=== PATIENT | female | born 1945 | race Caucasian/White ===

== ENCOUNTER 2022-01-01 13:53 | Inpatient (IN) | payer MEDICARE ==
[~2022-01-01] VITALS: Ht 167.6 cm; Wt 108.4 kg
[~2022-01-01 13:53] MED LIST: ACET-1871 PO; ASPI-630 PO; ATORVASTATIN CA80 MG PO; CITA20TA6 PO; GABA300C18 PO; HYDR12.58 PO; LEVO25TA4 PO; LISI5TAB15 PO; OMEP20CA16 PO; [UNRECOGNIZED DRUG - CODE] PO; [UNRECOGNIZED DRUG - OTHER]
[2022-01-01] MEDS ORDERED: NITROGLYCERIN SUBLINGUAL 0.4 MG BOTTLE OF 25. SL PRN ×2 (14:15→17:45)
[2022-01-01] MEDS ORDERED: MORPHINE SULFATE 4 MG/ML INJ. IV/SQ PRN (14:15)
--- NOTE | 2022-01-01 14:21 | RAD ---
XR CHEST 1V History: Chest pain Comparison: None. Technique: Portable AP radiograph of the chest. Findings: The lungs are hypoinflated. There are bibasilar opacities and diffuse interstitial opacities. The pul monary vasculature is indistinct. Suspect small pleural effusions. No pneumothorax. Cardiac silhouett e is at the upper limits of normal for size. Soft tissues and osseous structures are unremarkable. Impression: 1. Diffuse interstitial opacities and small pleural effusions may represent interstitial edema in th e appropriate clinical setting. Superimposed atelectasis or infection is not excluded. Electronically signed by: Amish Johnson MD (01/01/2022 2:19 PM) [id number]
[2022-01-01 14:35] LABS: BASO % 0 % (0-3); EOS # 0.1 x10^3/uL (0.0-0.7); EOS % 2 % (0-3); HEMATOCRIT 32.9 % (36.0-47.0); HEMOGLOBIN 10.5 g/dL (12.0-15.5); LYMPH # 1.2 x10^3/uL (1.0-4.8); LYMPH % 18 % (24-48); MEAN CORPUSCULAR HEMOGLOBIN 29 pg (25-35); MEAN CORPUSCULAR HGB CONC 32 g/dL (31-37); MEAN CORPUSCULAR VOLUME 91 fL (79-100); MONO # 0.5 x10^3/uL (0.0-1.1); MONO % 7 % (0-9); NEUT # 4.7 x10^3/uL (1.8-7.7); NEUT % 72 % (31-73); PLATELET COUNT 309 x10^3/uL (140-400); RED BLOOD COUNT 3.63 x10^6/uL (3.50-5.40); RED CELL DISTRIBUTION WIDTH 17.7 % (11.5-14.5); WHITE BLOOD COUNT 6.5 x10^3/uL (4.0-11.0)
[2022-01-01 14:46] LABS: CALCIUM 8.3 mg/dL (8.5-10.1); CREATININE 2.1 mg/dL (0.6-1.0); GFR 22.8; POTASSIUM 4.4 mmol/L (3.5-5.1)
[2022-01-01 14:49] LABS: ALBUMIN 2.9 g/dL (3.4-5.0); ALBUMIN/GLOBULIN RATIO 0.8 (1.0-1.7); MAGNESIUM 2.2 mg/dL (1.8-2.4); TOTAL BILIRUBIN 1.1 mg/dL (0.2-1.0); TOTAL PROTEIN 6.5 g/dL (6.4-8.2)
--- NOTE | 2022-01-01 16:08 | EKG ---
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
--- NOTE | 2022-01-01 16:09 | PDOC1 ---
History and Physical Date of Admission Date of Admission DATE: 01/01/22 TIME: 16:01 Identification/Chief Complaint Chief Complaint Chest pain Source Source: Patient History of Present Illness History of Present Illness Ms Remy is a 76yo female with PMHx HTN, hypothyroidism, ?COPD, RLS/essential tremor, CKDIV and recent diagnosis of afib who comes to ED via EMS c/o left sided chest pain that radiates to her left arm Pain is sharp, intermittent and radiates to left arm and shoulder. Pain has associated mild shortness of breath. She also notes some progressive dyspnea on exertion and some weakness that has gotten so bad that she could not catch her breath at all today had a proper self up. Pain is been present for least 1 week and has been mild but progressive now. No recent sick contacts. She does note she was hospitalized about a month ago at [facility] and was treated for which she was told was a viral respiratory tract infection. She notes she was also diagnosed with carotid artery disease and has an outpatient follow-up with surgery for this she noted some left-sided weakness at that time but does not really note that currently. No right-sided weakness. She does note she has had a 2 pound weight gain and normally weighs [address] Rosenberg for nephrology and think she has CKD stage IV. She follows with cardiology at [facility]. She takes Eliquis 5 mg twice daily gabapentin 300 mg daily and atorvastatin 80 mg nightly levothyroxine 137 mcg daily allopurinol 100 mg daily amiodarone 200 mg daily furosemide 40 mg daily Remeron 15 mg nightly WBC 6.5, Hb 10.5, platelets 309, NA 145, K4.4, BUN 29, CR 2.1, glucose 111, calcium 8.3, magnesium 2.2, bilirubin 1.1, AST 29, ALT 34, alkaline phosphatase 102, high-sensitivity troponin is 13, NT proBNP 1613, albumin 2.9, TSH 3.016 EKG appears sinus rate of 82 bpm, QTC 456 otherwise normal axis and intervals. No ST elevations or T WI Chest radiograph Diffuse interstitial opacities and small pleural effusions She was hypoxic less than 88% on room air placed on 2 L with O2 saturations 94%. Feels little improved. Admitted for further care. Past Medical History Cardiovascular: HTN, Hyperlipidemia Pulmonary: COPD CENTRAL NERVOUS SYSTEM: Periperal neuropathy, Other GI: GERD, Other Heme/Onc: No pertinent hx Hepatobiliary: No pertinent hx Psych: Anxiety Musculoskeletal: Osteoarthritis, Other Rheumatologic: No pertinent hx Infectious disease: No pertinent hx Renal/: Chronic renal insuff, Urinary Incontinence Endocrine: Hypothyroidism Past Surgical History Past Surgical History: Cholecystectomy, Hernia Repair, Hysterectomy Family History Family History: Coronary Artery Disease, Hypertension Social History Smoke: Quit (1997. Smoked for 30 years prior to that) ALCOHOL: none Drugs: None Current Medications Current Medications Current Medications Nitroglycerin (Nitrostat) 0.4 mg PRN Q5MIN PRN SL CP RATING > 1/10 Last administered on 01/01/22at 14:44; Start 01/01/22 at 14:15; Stop 01/02/22 at 14:14 Morphine Sulfate (Morphine Sulfate) 4 mg PRN Q15MIN PRN IV/SQ PAIN GREATER THAN 3/10 Last administered on 01/01/22at 15:14; Start 01/01/22 at 14:15; Stop 01/02/22 at 14:14 Active Scripts Active Reported Gabapentin 300 Mg Capsule 300 Mg PO HS [mag 500, vitamin D 3] Omeprazole 20 Mg Capsule.dr 20 Mg PO DAILY Atorvastatin Calcium 80 Mg Tablet 80 Mg PO DAILY Levothyroxine Sodium 25 Mcg Tablet 25 Mcg PO DAILY Slo-Niacin (Niacin) 500 Mg Tablet.er 500 Mg PO DAILY Lisinopril 5 Mg Tablet 5 Mg PO DAILY Citalopram Hbr (Citalopram Hydrobromide) 20 Mg Tablet 20 Mg PO DAILY Aspirin 81 Mg Tab.chew 81 Mg PO DAILY Acetaminophen 650 Mg Tablet.er 650 Mg PO Allergies Allergies: Coded Allergies: ibuprofen (Unverified Allergy, Intermediate, 03/23/14) ROS General: YES: Fatigue, Malaise; No: Chills, Night Sweats, Appetite, Other PSYCHOLOGICAL ROS: No: Anxiety, Behavioral Disorder, Concentration difficultie, Decreased libido, Depression, Disorientation, Hallucinations, Hostility, Irritablity, Memory difficulties, Mood Swings, Obsessive thoughts, Physical abuse, Sexual abuse, Sleep disturbances, Suicidal ideation, Other Eyes: No Blurry vision, No Decreased vision, No Double vision, No Dry eyes, No Excessive tearing, No Eye Pain, No Itchy Eyes, No Loss of vision, No Photophobia, No Scotomata, No Uses contacts, No Uses glasses, No Other HEENT: No: Heacaches, Visual Changes, Hearing change, Nasal congestion, Nasal discharge, Oral lesions, Sinus pain, Sore Throat, Epistaxis, Sneezing, Snoring, Tinnitus, Vertigo, Vocal changes, Other ALLERGY AND IMMUNOLOGY: No: Hives, Insect Bite Sensitivity, Itchy/Watery Eyes, Nasal Congestion, Post Nasal Drip, Seasonal Allergies, Other Hematological and Lymphatic: No: Bleeding Problems, Blood Clots, Blood Tra nsfusions, Brusing, Night Sweats, Pallor, Swollen Lymph Nodes, Other ENDOCRINE: No: Breast Changes, Galactorrhea, Hair Pattern Changes, Hot Flashes, Malaise/lethargy, Mood Swings, Palpitations, Polydipsia/polyuria, Skin Changes, Temperature Intolerance, Unexpected Weight Changes, Other Breast: No New/Changing Breast Lumps, No Nipple changes, No Nipple discharge, No Other Respiratory: YES: Orthopnea, Pleuritic Pain, Shortness of breath, SOB with excertion, Tachypnea, Wheezing; No: Cough, Hemoptysis, Sputum Changes, Stridor, Other Cardiovascular: yes Chest Pain, yes Orthopnea, yes Edema; No Palpitations, No Paroxysmal Noc. Dyspnea, No Lt Headedness, No Other Gastrointestinal: No Nausea, No Vomiting, No Abdominal Pain, No Diarrhea, No Constipation, No Melena, No Hematochezia, No Other Genitourinary: No Dysuria, No Frequency, No Incontinence, No Hematuria, No Retention, No Discharge, No Urgency, No Pain, No Flank Pain, No Other, No , No , No , No , No , No , No Musculoskeletal: No Gait Disturbance, No Joint Pain, No Joint Stiffness, No Joint Swelling, No Muscle Pain, No Muscular Weakness, No Pain In:, No Swelling In:, No Other Neurological: No Behavorial Changes, No Bowel/Bladder ControlChng, No Confusion, No Dizziness, No Gait Disturbance, No Headaches, No Impaired Coord/balance, No Memory Loss, No Numbness/Tingling, No Seizures, No Speech Problems, No Tremors, No Visual Changes, No Weakness, No Other Skin: No Dry Skin, No Eczema, No Hair Changes, No Lumps, No Mole Changes, No Mottling, No Nail Changes, No Pruritus, No Rash, No Skin Lesion Changes, No Other, No Acne Physical Exam General: Alert, Oriented X3, Cooperative, mild distress HEENT: Atraumatic, PERRLA, EOMI, Mucous membr. moist/pink Lungs: Other (Bilateral crackles) Heart: S1S2, RRR, no thrills, no rubs, no gallops, no murmurs Abdomen: Normal bowel sounds, Soft, No tenderness, No hepatosplenomegaly, No masses Rectal Exam: not examined Extremities: No clubbing, No cyanosis, Normal pulses, Other (1+ edema bilatera lly) Skin: No rashes, No breakdown, No significant lesion Neuro: Normal gait, Normal speech, Strength at 5/5 X4 ext, Normal tone, Sensation intact, Cranial nerves 3-12 NL, Reflexes 2+ Psych/Mental Status: Mental status NL, Mood NL Vitals Vitals Vital Signs Date Time Temp Pulse Resp B/P (MAP) Pulse Ox O2 Delivery O2 Flow Rate FiO2 01/01/22 15:14 26 98 Room Air 2.0 01/01/22 14:44 82 114/65 01/01/22 14:00 98.5 98.5 Labs Labs Laboratory Tests Test 01/01/22 14:15 White Blood Count 6.5 x10^3/uL (4.0-11.0) Red Blood Count 3.63 x10^6/uL (3.50-5.40) Hemoglobin 10.5 g/dL (12.0-15.5) Hematocrit 32.9 % (36.0-47.0) Mean Corpuscular Volume 91 fL (79-100) Mean Corpuscular Hemoglobin 29 pg (25-35) Mean Corpuscular Hemoglobin Concent 32 g/dL (31-37) Red Cell Distribution Width 17.7 % (11.5-14.5) Platelet Count 309 x10^3/uL (140-400) Neutrophils (%) (Auto) 72 % (31-73) Lymphocytes (%) (Auto) 18 % (24-48) Monocytes (%) (Auto) 7 % (0-9) Eosinophils (%) (Auto) 2 % (0-3) Basophils (%) (Auto) 0 % (0-3) Neutrophils # (Auto) 4.7 x10^3/uL (1.8-7.7) Lymphocytes # (Auto) 1.2 x10^3/uL (1.0-4.8) Monocytes # (Auto) 0.5 x10^3/uL (0.0-1.1) Eosinophils # (Auto) 0.1 x10^3/uL (0.0-0.7) Basophils # (Auto) 0.0 x10^3/uL (0.0-0.2) Sodium Level 145 mmol/L (136-145) Potassium Level 4.4 mmol/L (3.5-5.1) Chloride Level 105 mmol/L (98-107) Carbon Dioxide Level 29 mmol/L (21-32) Anion Gap 11 (6-14) Blood Urea Nitrogen 29 mg/dL (7-20) Creatinine 2.1 mg/dL (0.6-1.0) Estimated GFR (Cockcroft-Gault) 22.8 BUN/Creatinine Ratio 14 (6-20) Glucose Level 111 mg/dL (70-99) Calcium Level 8.3 mg/dL (8.5-10.1) Magnesium Level 2.2 mg/dL (1.8-2.4) Total Bilirubin 1.1 mg/dL (0.2-1.0) Aspartate Amino Transf (AST/SGOT) 29 U/L (15-37) Alanine Aminotransferase (ALT/SGPT) 34 U/L (14-59) Alkaline Phosphatase 102 U/L (46-116) Troponin I High Sensitivity 13 ng/L (4-50) VN-Kaq-K-Type Natriuretic Peptide 1613 pg/mL (0-449) Total Protein 6.5 g/dL (6.4-8.2) Albumin 2.9 g/dL (3.4-5.0) Albumin/Globulin Ratio 0.8 (1.0-1.7) Thyroid Stimulating Hormone (TSH) 3.016 uIU/mL (0.358-3.74) Laboratory Tests Test 01/01/22 14:15 White Blood Count 6.5 x10^3/uL (4.0-11.0) Red Blood Count 3.63 x10^6/uL (3.50-5.40) Hemoglobin 10.5 g/dL (12.0-15.5) Hematocrit 32.9 % (36.0-47.0) Mean Corpuscular Volume 91 fL (79-100) Mean Corpuscular Hemoglobin 29 pg (25-35) Mean Corpuscular Hemoglobin Concent 32 g/dL (31-37) Red Cell Distribution Width 17.7 % (11.5-14.5) Platelet Count 309 x10^3/uL (140-400) Neutrophils (%) (Auto) 72 % (31-73) Lymphocytes (%) (Auto) 18 % (24-48) Monocytes (%) (Auto) 7 % (0-9) Eosinophils (%) (Auto) 2 % (0-3) Basophils (%) (Auto) 0 % (0-3) Neutrophils # (Auto) 4.7 x10^3/uL (1.8-7.7) Lymphocytes # (Auto) 1.2 x10^3/uL (1.0-4.8) Monocytes # (Auto) 0.5 x10^3/uL (0.0-1.1) Eosinophils # (Auto) 0.1 x10^3/uL (0.0-0.7) Basophils # (Auto) 0.0 x10^3/uL (0.0-0.2) Sodium Level 145 mmol/L (136-145) Potassium Level 4.4 mmol/L (3.5-5.1) Chloride Level 105 mmol/L (98-107) Carbon Dioxide Level 29 mmol/L (21-32) Anion Gap 11 (6-14) Blood Urea Nitrogen 29 mg/dL (7-20) Creatinine 2.1 mg/dL (0.6-1.0) Estimated GFR (Cockcroft-Gault) 22.8 BUN/Creatinine Ratio 14 (6-20) Glucose Level 111 mg/dL (70-99) Calcium Level 8.3 mg/dL (8.5-10.1) Magnesium Level 2.2 mg/dL (1.8-2.4) Total Bilirubin 1.1 mg/dL (0.2-1.0) Aspartate Amino Transf (AST/SGOT) 29 U/L (15-37) Alanine Aminotransferase (ALT/SGPT) 34 U/L (14-59) Alkaline Phosphatase 102 U/L (46-116) Troponin I High Sensitivity 13 ng/L (4-50) HD-Pjm-T-Type Natriuretic Peptide 1613 pg/mL (0-449) Total Protein 6.5 g/dL (6.4-8.2) Albumin 2.9 g/dL (3.4-5.0) Albumin/Globulin Ratio 0.8 (1.0-1.7) Thyroid Stimulating Hormone (TSH) 3.016 uIU/mL (0.358-3.74) Images Images Chest radiograph: The lungs are hypoinflated. There are bibasilar opacities and diffuse interstitial opacities. The pulmonary vasculature is indistinct. Suspect small pleural effusions. No pneumothorax. Cardiac silhouette is at the upper limits of normal for size. Soft tissues and osseous structures are unremarkable. Impression: 1. Diffuse interstitial opacities and small pleural effusions may represent interstitial edema in the appropriate clinical setting. Superimposed atelectasis or infection is not excluded. VTE Prophylaxis Ordered VTE Prophylaxis Devices: No VTE Pharmacological Prophylaxi: Yes Assessment/Plan Assessment/Plan Acute respiratory failure with hypoxia - interstitial pattern concerning for viral, atypical pneumonia or more likely diastolic CHF or amiodarone effect. Will wean O2 as tolerated Chest pain - likely esophageal spasm from GERD/Gastroparesis vs less likely anginal, though acute CHF and pleuritic pain are possible as well. Cardiology consulted, trend trops, tele Shortness of breath - will treat as acute diastolic CHF, diurese. Nebs prn. Remote smoking history less likely to play a role. Will have pulm consulted to consider amio pulmonary tox Paroxysmal afib - on amio and eliquis. No BB or CCB noted on her med history. follows at [facility] with Dr Allred. Hold amio for abnormal chest radiograph. HTN - on furosemide. Will continue ?COPD - nebs ordered Essential tremor - patient says RLS, will reduce gabapentin for renal function CKD IV - Nephrology to see. Sees Dr. Rosenberg outpatient Hypothyroidism - cont home meds Insomnia - cont remeron FEN - Cardiac diet PPX - eliquis FULL CODE Dispo - inpatient Justifications for Admission Other Justification AMY HAWTHORNE MD Jan 01, 2022 16:09
[2022-01-01] MEDS ORDERED: ACETAMINOPHEN 325 MG TABLET. PO PRN (17:00)
[2022-01-01] MEDS ORDERED: HEPARIN for SUB-Q USE 5,000 UNIT/ML VIAL. SQ SCH (17:00)
[2022-01-01] MEDS ORDERED: FUROSEMIDE 100 MG/10 ML VIAL. IVP ONE (17:00)
[2022-01-01] MEDS ORDERED: traMADol 50 MG TABLET PO PRN (17:00)
[2022-01-01] MEDS ORDERED: guaiFENesin DM 200MG/20MG 10 ML SYRUP PO PRN (17:00)
[2022-01-01] MEDS ORDERED: ALBUTEROL SULFATE 2.5 MG/3 ML NEBU. NEB PRN (17:00)
[2022-01-01] MEDS ORDERED: fentaNYL PF VIAL 100 MCG/2 ML VIAL IVP PRN (17:00)
[2022-01-01] MEDS ORDERED: ONDANSETRON PF 4 MG/2 ML VIAL. IVP PRN ×2 (17:00→17:45)
[2022-01-01] MEDS ORDERED: hydrALAZINE 20 MG/ML VIAL. IVP PRN (17:00)
[2022-01-01] MEDS ORDERED: MORPHINE SULFATE 4 MG/ML INJ. IVP PRN (17:45)
--- NOTE | 2022-01-01 17:46 | PHYS DOC ---
Past Medical History Past Medical History: A-Fib, COPD, High Cholesterol, Hypertension, Renal Disease Additional Past Medical Histor: GASTROPERESIS, restless leg syndrome Past Surgical History: Hysterectomy, Other Additional Past Surgical Histo: HERNIA, KIDNEY SURGERY Smoking Status: Never Smoker Alcohol Use: None Drug Use: None General Adult EDM: Chief Complaint: CHEST PAIN HPI: HPI: Patient is a 76 year old female with history of A. fib on Eliquis, hypertension, COPD currently not smoking, kidney disease, high cholesterol, who presents the ED today complaining of 7 out of 10 sharp intermittent left-sided chest pain radiating to the left shoulder left arm, symptoms began a week ago. Patient states today she started experiencing shortness of breath hence the reason she came to the ED. Denies any fever. Denies any nasal congestion. States deep breaths exacerbates the pain, denies anything specifically relieving the pain. Review of Systems: Review of Systems: Constitutional: Denies fever or chills. [] Eyes: Denies change in visual acuity. [] HENT: Denies nasal congestion or sore throat. [] Respiratory: Reports shortness of breath, denies coughing Cardiovascular: Reports left-sided chest pain GI: Denies abdominal pain, nausea, vomiting, bloody stools or diarrhea. [] : Denies dysuria. [] Musculoskeletal: Denies back pain or joint pain. [] Integument: Denies rash. [] Neurologic: Denies headache, focal weakness or sensory changes. [] Psychiatric: Denies depression or anxiety. [] Heart Score: C/O Chest Pain: Yes HEART Score for Chest Pain: HEART Score for Chest Pain Response (Comments) Value History Slighlty/Non-Suspicious 0 ECG Normal 0 Age > 65 2 Risk Factors >3 Risk Factors or Hx CAD 2 Troponin < Normal Limit 0 Total 4 Risk Factors: Risk Factors: DM, Current or recent (<one month) smoker, HTN, HLP, family history of CAD, obesity. Risk Scores: Score 0 - 3: 2.5% MACE over next 6 weeks - Discharge Home Score 4 - 6: 20.3% MACE over next 6 weeks - Admit for Clinical Observation Score 7 - 10: 72.7% MACE over next 6 weeks - Early Invasive Strategies Current Medications: Current Medications Medications (Trade) Dose Ordered Sig/Kendall Start Time Stop Time Status Last Admin Dose Admin Morphine Sulfate (Morphine Sulfate) 4 mg PRN Q15MIN PRN 01/01/22 14:15 01/01/22 16:57 DC 01/01/22 15:14 4 MG Nitroglycerin (Nitrostat) 0.4 mg PRN Q5MIN PRN 01/01/22 14:15 01/02/22 14:14 01/01/22 14:44 0.4 MG Allergies: Allergies: Allergies Coded Allergies Type Severity Reaction Last Updated Verified ibuprofen Allergy Intermediate 03/23/14 No Physical Exam: PE: Constitutional: Well developed, well nourished, no acute distress, non-toxic appearance. [] HENT: Normocephalic, atraumatic, bilateral external ears normal, oropharynx moist, no oral exudates, nose normal. [] Eyes: PERRLA, EOMI, conjunctiva normal, no discharge. [] Neck: Normal range of motion, no tenderness, supple, no stridor. [] Cardiovascular:Heart rate regular rhythm, no murmur [] Lungs & Thorax: Bilateral breath sounds clear to auscultation [] Abdomen: Bowel sounds normal, soft, no tenderness, no masses, no pulsatile masses. [] Skin: Warm, dry, no erythema, no rash. [] Back: No tenderness, no CVA tenderness. [] Extremities: No tenderness, no cyanosis, no clubbing, ROM intact, no edema. [] Neurologic: Alert and oriented X 3, normal motor function, normal sensory function, no focal deficits noted. [] Psychologic: Affect normal, judgement normal, mood normal. [] Current Patient Data: Labs: Laboratory Tests Test 01/01/22 14:15 01/01/22 16:43 White Blood Count 6.5 x10^3/uL (4.0-11.0) Red Blood Count 3.63 x10^6/uL (3.50-5.40) Hemoglobin 10.5 g/dL (12.0-15.5) L Hematocrit 32.9 % (36.0-47.0) L Mean Corpuscular Volume 91 fL (79-100) Mean Corpuscular Hemoglobin 29 pg (25-35) Mean Corpuscular Hemoglobin Concent 32 g/dL (31-37) Red Cell Distribution Width 17.7 % (11.5-14.5) H Platelet Count 309 x10^3/uL (140-400) Neutrophils (%) (Auto) 72 % (31-73) Lymphocytes (%) (Auto) 18 % (24-48) L Monocytes (%) (Auto) 7 % (0-9) Eosinophils (%) (Auto) 2 % (0-3) Basophils (%) (Auto) 0 % (0-3) Neutrophils # (Auto) 4.7 x10^3/uL (1.8-7.7) Lymphocytes # (Auto) 1.2 x10^3/uL (1.0-4.8) Monocytes # (Auto) 0.5 x10^3/uL (0.0-1.1) Eosinophils # (Auto) 0.1 x10^3/uL (0.0-0.7) Basophils # (Auto) 0.0 x10^3/uL (0.0-0.2) Sodium Level 145 mmol/L (136-145) Potassium Level 4.4 mmol/L (3.5-5.1) Chloride Level 105 mmol/L (98-107) Carbon Dioxide Level 29 mmol/L (21-32) Anion Gap 11 (6-14) Blood Urea Nitrogen 29 mg/dL (7-20) H Creatinine 2.1 mg/dL (0.6-1.0) H Estimated GFR (Cockcroft-Gault) 22.8 BUN/Creatinine Ratio 14 (6-20) Glucose Level 111 mg/dL (70-99) H Calcium Level 8.3 mg/dL (8.5-10.1) L Magnesium Level 2.2 mg/dL (1.8-2.4) Total Bilirubin 1.1 mg/dL (0.2-1.0) H Aspartate Amino Transferase (AST) 29 U/L (15-37) Alanine Aminotransferase (ALT) 34 U/L (14-59) Alkaline Phosphatase 102 U/L (46-116) Troponin I High Sensitivity 13 ng/L (4-50) 13 ng/L (4-50) KF-Kva-D-Type Natriuretic Peptide 1613 pg/mL (0-449) H Total Protein 6.5 g/dL (6.4-8.2) Albumin 2.9 g/dL (3.4-5.0) L Albumin/Globulin Ratio 0.8 (1.0-1.7) L Thyroid Stimulating Hormone (TSH) 3.016 uIU/mL (0.358-3.74) Laboratory Tests 01/01/22 14:15 Laboratory Tests 01/01/22 14:15 Vital Signs: Vital Signs Date Time Temp Pulse Resp B/P (MAP) Pulse Ox O2 Delivery O2 Flow Rate FiO2 01/01/22 16:32 74 134/74 (94) 96 Nasal Cannula 3.0 01/01/22 15:14 26 01/01/22 14:00 98.5 98.5 EKG: EK interpreted by Dr. Mattson sinus rhythm heart rate 82 no STEMI [] Radiology/Procedures: Radiology/Procedures: []PROCEDURE: PORTABLE CHEST 1V XR CHEST 1V History: Chest pain Comparison: None. Technique: Portable AP radiograph of the chest. Findings: The lungs are hypoinflated. There are bibasilar opacities and diffuse interstitial opacities. The pulmonary vasculature is indistinct. Suspect small pleural effusions. No pneumothorax. Cardiac silhouette is at the upper limits of normal for size. Soft tissues and osseous structures are unremarkable. Impression: 1. Diffuse interstitial opacities and small pleural effusions may represent interstitial edema in the appropriate clinical setting. Superimposed atelectasis or infection is not excluded. Electronically signed by: Amish Meek MD (01/01/2022 2:19 PM) [id number] DICTATED and SIGNED BY: AMISH MEEK MD DATE: 01/01/22 [id number] 0 Course & Med Decision Making: Course & Med Decision Making Pertinent Labs and Imaging studies reviewed. (See chart for details) This is a 76-year-old female patient presented to the ED today complaining of left-sided chest pain radiating to the left shoulder and arm, symptoms began a week ago. Patient is also complaining of shortness of breath since this morning. Vitals on arrival to the ED temperature 98.5, heart rate 90, respiration 28 on room air, O2 sats 88%, blood pressure 126/70, was put on 2 L of oxygen saturations above 95% Chest x-ray interpreted by radiologist diffuse interstitial opacities and small pleural effusions may represent interstitial edema in the appropriate clinical setting. Superimposed atelectasis or infection is not excluded. EKG is negative for STEMI. Initial first high-sensitivity troponin is 10 CBC with a normal WBC, hemoglobin 10.5 with hematocrit of 32.9. CMP with creatinine of 2.1, BUN of 29, patient reports history of kidney disease, BNP 1613. Spoke with Dr. 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 Departure Departure Impression: Primary Impression: Chest pain Qualified Codes: R07.9 - Chest pain, unspecified Additional Impressions: CKD (chronic kidney disease) Qualified Codes: N18.9 - Chronic kidney disease, unspecified Anemia Qualified Codes: N18.9 - Chronic kidney disease, unspecified; D63.1 - Anemia in chronic kidney disease Hypoxia Disposition: 09 ADMITTED INPATIENT Condition: STABLE Referrals: SANDRA MCDANIELS (PCP) ESTELA LEBRON APRN Jan 01, 2022 17:46
[2022-01-01] MEDS: BUDESONIDE 0.5 MG/2 ML NEBU. NEB SCH (18:16)
[2022-01-01] MEDS ORDERED: LEVO137T3 PO (18:16)
[2022-01-01] MEDS ORDERED: FAMO-63 PO (18:16)
[2022-01-01] MEDS ORDERED: APIX5TAB PO (18:16)
[2022-01-01] MEDS: IPRATRPIUM/ALBUTEROL 0.5/2.5MG 3 ML NEBU. NEB SCH (18:16)
[2022-01-01 19:40] VITALS: BP 98/54
[2022-01-01] MEDS: GABAPENTIN 300 MG CAPSULE. PO SCH (21:02)
[2022-01-01] MEDS: APIXABAN 5 MG TABLET. PO SCH (21:02)
[2022-01-01] MEDS: ATORVASTATIN CALCIUM 40 MG TABLET. PO SCH (21:02)
[2022-01-01] MEDS: MIRTAZAPINE 15 MG TABLET PO SCH (21:03)
[2022-01-01 22:50] VITALS: BP 95/52
[2022-01-02 03:05] VITALS: BP 96/52
[2022-01-02 06:08] LABS: BASO % 1 % (0-3); EOS # 0.1 x10^3/uL (0.0-0.7); EOS % 2 % (0-3); HEMATOCRIT 30.9 % (36.0-47.0); HEMOGLOBIN 9.6 g/dL (12.0-15.5); LYMPH # 0.7 x10^3/uL (1.0-4.8); LYMPH % 12 % (24-48); MEAN CORPUSCULAR HEMOGLOBIN 29 pg (25-35); MEAN CORPUSCULAR HGB CONC 31 g/dL (31-37); MEAN CORPUSCULAR VOLUME 94 fL (79-100); MONO # 0.6 x10^3/uL (0.0-1.1); MONO % 10 % (0-9); NEUT # 4.4 x10^3/uL (1.8-7.7); NEUT % 76 % (31-73); PLATELET COUNT 291 x10^3/uL (140-400); RED BLOOD COUNT 3.29 x10^6/uL (3.50-5.40); WHITE BLOOD COUNT 5.8 x10^3/uL (4.0-11.0)
[2022-01-02] MEDS: LEVOTHYROXINE 137 MCG TABLET PO SCH (06:11)
[2022-01-02 06:32] LABS: ALBUMIN 2.5 g/dL (3.4-5.0); ALBUMIN/GLOBULIN RATIO 0.7 (1.0-1.7); CREATININE 2.2 mg/dL (0.6-1.0); GFR 21.6; POTASSIUM 3.9 mmol/L (3.5-5.1); TOTAL BILIRUBIN 0.8 mg/dL (0.2-1.0); TOTAL PROTEIN 6.3 g/dL (6.4-8.2)
[2022-01-02 07:00] VITALS: BP 119/61
[2022-01-02] MEDS ORDERED: AMIO200T53 PO (07:19)
[2022-01-02] MEDS ORDERED: FURO40TA4 PO (07:19)
[2022-01-02] MEDS ORDERED: OXYB5TAB10 PO (07:19)
[2022-01-02] MEDS ORDERED: MIRT-7 PO (07:19)
[2022-01-02] MEDS ORDERED: CALC0.25 PO (07:19)
[2022-01-02] MEDS: BUDESONIDE 0.5 MG/2 ML NEBU. NEB SCH ×2 (08:00→20:00)
[2022-01-02] MEDS: IPRATRPIUM/ALBUTEROL 0.5/2.5MG 3 ML NEBU. NEB SCH ×4 (08:00→20:00)
[2022-01-02] MEDS: ALLOPURINOL 100 MG TABLET. PO SCH (08:09)
[2022-01-02] MEDS: APIXABAN 5 MG TABLET. PO SCH ×2 (08:09→20:34)
--- NOTE | 2022-01-02 09:26 | PDOC2 ---
CARDIAC CONSULT DATE OF CONSULT Date of Consult DATE: 01/02/22 TIME: 08:54 REASON FOR CONSULT Reason for Consult: Chest pain REFERRING PHYSICIAN Referring Physician: Radha SOURCE Source: Chart review, Patient HISTORY OF PRESENT ILLNESS HISTORY OF PRESENT ILLNESS This is a pleasant 76 yo female admitted for complains of chest pain. Reports of burning sensation on her left chest and has been ongoing in the last week. Also has been having CASEY. Denies any fever or chills. No viral symptoms. Denies any past CAD. 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 NO recent falls or injury. She has PAFIB and presently in SR and denies any presyncopal spells. No nausea or vomiting. She has received 2 NTG and Morphine in ED and has relieved her discomfort. Denies any orthopnea or significant leg swelling. PAST MEDICAL HISTORY Past Medical History Cardiovascular: HTN, Hyperlipidemia, AFIB, valve insufficiency Pulmonary: COPD (mild, no treatment) CENTRAL NERVOUS SYSTEM: Periperal neuropathy, Other (RLS diagnosed recently via sleep study, no sleep apnea) GI: GERD, Other (gastroparesis) Heme/Onc: No pertinent hx Hepatobiliary: No pertinent hx Psych: Anxiety Musculoskeletal: Osteoarthritis, Other (gout) Rheumatologic: No pertinent hx Infectious disease: No pertinent hx ENT: Other (cataract, dry macular degeneration) Renal/: Chronic renal insuff, Urinary Incontinence (stress) Endocrine: Hypothyroidism Dermatology: No pertinent hx Heme/Onc: Anemia NOS PAST SURGICAL HISTORY Past Surgical History Cholecystectomy, Other (Hyterectomy, left foot tophus removal, left groin hernia repair x4, neck surgery) FAMILY HISTORY Family History Mother significant for NV and CVA SOCIAL HISTORY Social History Smoke: Quit (30 years ago) ALCOHOL: none Drugs: None Lives: with Family Domestic Violence: Neg CURRENT MEDICATIONS CURRENT MEDICATIONS Current Medications Medications (Trade) Dose Ordered Sig/Kendall Route PRN Reason Start Time Stop Time Status Last Admin Dose Admin Nitroglycerin (Nitrostat) 0.4 mg PRN Q5MIN PRN SL CP RATING > 1/10 01/01/22 14:15 01/02/22 14:14 01/01/22 14:44 Morphine Sulfate (Morphine Sulfate) 4 mg PRN Q15MIN PRN IV/SQ PAIN GREATER THAN 3/10 01/01/22 14:15 01/01/22 16:57 DC 01/01/22 15:14 Budesonide (Pulmicort) 0.5 mg RTBID NEB 01/01/22 20:00 01/01/22 18:16 Albuterol/ Ipratropium (Duoneb) 3 ml RTQID NEB 01/01/22 20:00 01/01/22 18:16 Furosemide (Lasix) 80 mg 1X ONCE IVP 01/01/22 17:00 01/01/22 17:02 DC 01/01/22 18:00 Apixaban (Eliquis) 5 mg BID PO 01/01/22 21:00 01/02/22 08:09 Gabapentin (Neurontin) 300 mg QHS PO 01/01/22 21:00 01/01/22 21:02 Levothyroxine Sodium (Synthroid) 137 mcg DAILY06 PO 01/02/22 06:00 01/02/22 06:11 Atorvastatin Calcium (Lipitor) 80 mg QHS PO 01/01/22 21:00 01/01/22 21:02 Allopurinol (Zyloprim) 100 mg DAILY PO 01/02/22 09:00 01/02/22 08:09 Mirtazapine (Remeron) 15 mg QHS PO 01/01/22 21:00 01/01/22 21:03 ALLERGIES ALLERGIES: Coded Allergies: ibuprofen (Unverified Allergy, Intermediate, 03/23/14) ROS Review of System 14 point ROS evaluated with pertinent positives noted per HPI PHYSICAL EXAM General: Alert, Oriented X3, Cooperative, No acute distress HEENT: Atraumatic, Mucous membr. moist/pink Lungs: Other (basilar crackles) Heart: Regular rate (SR), Normal S1, Normal S2 Abdomen: Soft, No tenderness Extremities: No cyanosis, No edema Skin: No breakdown, No significant lesion Neuro: Normal speech, Sensation intact Psych/Mental Status: Mental status NL, Mood NL MUSCULOSKELETAL: Osteoarthritic changes both hands VITALS/I&O VITALS/I&O: Vital Signs Date Time Temp Pulse Resp B/P (MAP) Pulse Ox O2 Delivery O2 Flow Rate FiO2 01/02/22 07:00 98.5 77 20 119/61 (80) 92 Nasal Cannula 3.0 98.5 I & O 01/01/22 01/01/22 01/02/22 15:00 23:00 07:00 Intake Total 200 ml Output Total 1100 ml Balance -900 ml LABS Lab: Laboratory Tests Test 01/01/22 14:15 01/01/22 16:43 01/01/22 19:55 01/02/22 05:05 White Blood Count 6.5 x10^3/uL (4.0-11.0) 5.8 x10^3/uL (4.0-11.0) Red Blood Count 3.63 x10^6/uL (3.50-5.40) 3.29 x10^6/uL (3.50-5.40) L Hemoglobin 10.5 g/dL (12.0-15.5) L 9.6 g/dL (12.0-15.5) L Hematocrit 32.9 % (36.0-47.0) L 30.9 % (36.0-47.0) L Mean Corpuscular Volume 91 fL (79-100) 94 fL (79-100) Mean Corpuscular Hemoglobin 29 pg (25-35) 29 pg (25-35) Mean Corpuscular Hemoglobin Concent 32 g/dL (31-37) 31 g/dL (31-37) Red Cell Distribution Width 17.7 % (11.5-14.5) H 18.0 % (11.5-14.5) H Platelet Count 309 x10^3/uL (140-400) 291 x10^3/uL (140-400) Neutrophils (%) (Auto) 72 % (31-73) 76 % (31-73) H Lymphocytes (%) (Auto) 18 % (24-48) L 12 % (24-48) L Monocytes (%) (Auto) 7 % (0-9) 10 % (0-9) H Eosinophils (%) (Auto) 2 % (0-3) 2 % (0-3) Basophils (%) (Auto) 0 % (0-3) 1 % (0-3) Neutrophils # (Auto) 4.7 x10^3/uL (1.8-7.7) 4.4 x10^3/uL (1.8-7.7) Lymphocytes # (Auto) 1.2 x10^3/uL (1.0-4.8) 0.7 x10^3/uL (1.0-4.8) L Monocytes # (Auto) 0.5 x10^3/uL (0.0-1.1) 0.6 x10^3/uL (0.0-1.1) Eosinophils # (Auto) 0.1 x10^3/uL (0.0-0.7) 0.1 x10^3/uL (0.0-0.7) Basophils # (Auto) 0.0 x10^3/uL (0.0-0.2) 0.0 x10^3/uL (0.0-0.2) Sodium Level 145 mmol/L (136-145) 145 mmol/L (136-145) Potassium Level 4.4 mmol/L (3.5-5.1) 3.9 mmol/L (3.5-5.1) Chloride Level 105 mmol/L (98-107) 103 mmol/L (98-107) Carbon Dioxide Level 29 mmol/L (21-32) 31 mmol/L (21-32) Anion Gap 11 (6-14) 11 (6-14) Blood Urea Nitrogen 29 mg/dL (7-20) H 29 mg/dL (7-20) H Creatinine 2.1 mg/dL (0.6-1.0) H 2.2 mg/dL (0.6-1.0) H Estimated GFR (Cockcroft-Gault) 22.8 21.6 BUN/Creatinine Ratio 14 (6-20) 13 (6-20) Glucose Level 111 mg/dL (70-99) H 115 mg/dL (70-99) H Calcium Level 8.3 mg/dL (8.5-10.1) L 8.0 mg/dL (8.5-10.1) L Magnesium Level 2.2 mg/dL (1.8-2.4) Total Bilirubin 1.1 mg/dL (0.2-1.0) H 0.8 mg/dL (0.2-1.0) Aspartate Amino Transferase (AST) 29 U/L (15-37) 22 U/L (15-37) Alanine Aminotransferase (ALT) 34 U/L (14-59) 28 U/L (14-59) Alkaline Phosphatase 102 U/L (46-116) 107 U/L (46-116) Troponin I High Sensitivity 13 ng/L (4-50) 13 ng/L (4-50) 12 ng/L (4-50) XV-Ono-U-Type Natriuretic Peptide 1613 pg/mL (0-449) H Total Protein 6.5 g/dL (6.4-8.2) 6.3 g/dL (6.4-8.2) L Albumin 2.9 g/dL (3.4-5.0) L 2.5 g/dL (3.4-5.0) L Albumin/Globulin Ratio 0.8 (1.0-1.7) L 0.7 (1.0-1.7) L Thyroid Stimulating Hormone (TSH) 3.016 uIU/mL (0.358-3.74) Test 01/02/22 08:15 SARS-CoV-2 Antigen (Rapid) Negative (NEGATIVE) Laboratory Tests 01/01/22 14:15 01/02/22 05:05 Laboratory Tests 01/01/22 14:15 01/02/22 05:05 ASSESSMENT/PLAN ASSESSMENT/PLAN 1. Chest pain: UA features 2. PAFIB: SR 3. Acute on chronic diastolic CHF: compensated 4. HTN: controlled 5. HLP 6. COPD 7. 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 MPI today. TTE 2. Hold BP meds for now. Received lasix in ED 3. Secondary prevention measures 4. Eliquis for stroke prevention VIVIANA HE APRN Jan 02, 2022 09:25
--- NOTE | 2022-01-02 10:20 | CONS ---
DATE OF CONSULTATION: 01/02/2022 PULMONARY CONSULTATION ATTENDING PHYSICIAN: Rush Garcia MD REASON FOR CONSULTATION: Respiratory failure, chest pain. HISTORY OF PRESENT ILLNESS: The patient is a 76-year-old obese female with a BMI of 38. She smoked for 30 years before quitting 25 years ago. She was brought into the hospital complaining of chest burning since the last 1 week. She denies any cough, no fever, no chills. No headache, no nausea or vomiting, no diarrhea, no dysuria. The patient has history of paroxysmal atrial fibrillation. She received nitroglycerin and morphine, which did relieve her discomfort. Chest x-ray was reviewed by me. There is evidence of bilateral interstitial infiltrates suggestive of congestive heart failure. The patient states she is updated on her COVID vaccination, received Jonel and Jonel. She has no history of COVID. PAST MEDICAL HISTORY: History of hypertension, history of atrial fibrillation, history of valvular insufficiency, history of COPD, unknown FEV1, history of peripheral neuropathy, macular degeneration, CKD. PAST SURGICAL HISTORY: Cholecystectomy, hysterectomy. FAMILY HISTORY: Noncontributory to lungs. SOCIAL HISTORY: Smoked for 30 years before quitting 25 years ago. ALLERGIES: IBUPROFEN. MEDICATIONS: Reviewed as listed in the MRAD. She is also on Eliquis. REVIEW OF SYSTEMS: Twelve-point system obtained. Pertinent positives discussed in my present illness, otherwise noncontributory. All systems that were negative were reviewed as well. PHYSICAL EXAMINATION: VITAL SIGNS: Reviewed. Blood pressure is stable. Pulse ox 92% on 3 liters, afebrile. NECK: Supple. LUNGS: With diminished breath sounds. CARDIOVASCULAR: With a regular rate. ABDOMEN: Soft, obese. EXTREMITIES: With no pitting edema. LABORATORY DATA: Reviewed. Her COVID rapid is negative. BUN 29, creatinine of 2.2. Albumin is 2.5. Hemoglobin is 9.6. White cell count 5.8. IMPRESSION: 1. Acute hypoxic respiratory failure with dyspnea and chest burning. Likely acute diastolic congestive heart failure. Could be systolic heart failure as well. 2. Abnormal chest x-ray with bilateral interstitial infiltrates suggestive of congestive heart failure. 3. I have updated on COVID vaccine with Jonel and Jonel. COVID rapid is negative. 4. Chronic kidney disease. 5. Moderate protein-calorie malnutrition. 6. Likely underlying chronic obstructive pulmonary disease. Smoked for 30 years. RECOMMENDATIONS: 1. The patient is to receive Lasix 80 mg in the morning yesterday. I will follow up another chest x-ray to see improvement. 2. Monitor renal function while on diuretics. 3. Continue Eliquis for atrial fibrillation. 4. Cardiology recommendations, awaiting. 5. Continue DuoNebs along with Pulmicort. 6. Obtain echocardiogram. 7. Discussed with Cardiology. Discussed with RN. We will follow along with you. BILL DR: Irvin TID: [id number]
--- NOTE | 2022-01-02 10:23 | PDOC ---
[employer] PROGRESS NOTE Date of Service DOS: DATE: 01/02/22 TIME: 10:21 Chief Complaint Chief Complaint Acute on chronic respiratory failure Hypoxia Chest pain History of GERD Shortness of air History of paroxysmal A. fib Hypertension Possible COPD Tremors Chronic kidney disease Hypothyroidism Insomnia History of Present Illness History of Present Illness 01/02/2022 Patient seen and examined Discussed with RN Discussed with case management Chart reviewed Patient states she feels a little better today Vitals/I&O Vitals/I&O: Vital Signs Date Time Temp Pulse Resp B/P (MAP) Pulse Ox O2 Delivery O2 Flow Rate FiO2 01/02/22 08:00 3.0 01/02/22 07:00 98.5 77 20 119/61 (80) 92 Nasal Cannula 98.5 I & O 0 01/01/22 01/01/22 01/02/22 15:00 23:00 07:00 Intake Total 200 ml Output Total 1100 ml Balance -900 ml Physical Exam General: Alert, Oriented X3, Cooperative, No acute distress Heart: Regular rate (SR), Normal S1, Normal S2 Lungs: Clear Abdomen: Soft, No tenderness Extremities: No cyanosis, No edema Skin: No breakdown, No significant lesion Labs Labs: Laboratory Tests Test 01/01/22 14:15 01/01/22 16:43 01/01/22 19:55 01/02/22 05:05 White Blood Count 6.5 x10^3/uL (4.0-11.0) 5.8 x10^3/uL (4.0-11.0) Red Blood Count 3.63 x10^6/uL (3.50-5.40) 3.29 x10^6/uL (3.50-5.40) Hemoglobin 10.5 g/dL (12.0-15.5) 9.6 g/dL (12.0-15.5) Hematocrit 32.9 % (36.0-47.0) 30.9 % (36.0-47.0) Mean Corpuscular Volume 91 fL (79-100) 94 fL (79-100) Mean Corpuscular Hemoglobin 29 pg (25-35) 29 pg (25-35) Mean Corpuscular Hemoglobin Concent 32 g/dL (31-37) 31 g/dL (31-37) Red Cell Distribution Width 17.7 % (11.5-14.5) 18.0 % (11.5-14.5) Platelet Count 309 x10^3/uL (140-400) 291 x10^3/uL (140-400) Neutrophils (%) (Auto) 72 % (31-73) 76 % (31-73) Lymphocytes (%) (Auto) 18 % (24-48) 12 % (24-48) Monocytes (%) (Auto) 7 % (0-9) 10 % (0-9) Eosinophils (%) (Auto) 2 % (0-3) 2 % (0-3) Basophils (%) (Auto) 0 % (0-3) 1 % (0-3) Neutrophils # (Auto) 4.7 x10^3/uL (1.8-7.7) 4.4 x10^3/uL (1.8-7.7) Lymphocytes # (Auto) 1.2 x10^3/uL (1.0-4.8) 0.7 x10^3/uL (1.0-4.8) Monocytes # (Auto) 0.5 x10^3/uL (0.0-1.1) 0.6 x10^3/uL (0.0-1.1) Eosinophils # (Auto) 0.1 x10^3/uL (0.0-0.7) 0.1 x10^3/uL (0.0-0.7) Basophils # (Auto) 0.0 x10^3/uL (0.0-0.2) 0.0 x10^3/uL (0.0-0.2) Sodium Level 145 mmol/L (136-145) 145 mmol/L (136-145) Potassium Level 4.4 mmol/L (3.5-5.1) 3.9 mmol/L (3.5-5.1) Chloride Level 105 mmol/L (98-107) 103 mmol/L (98-107) Carbon Dioxide Level 29 mmol/L (21-32) 31 mmol/L (21-32) Anion Gap 11 (6-14) 11 (6-14) Blood Urea Nitrogen 29 mg/dL (7-20) 29 mg/dL (7-20) Creatinine 2.1 mg/dL (0.6-1.0) 2.2 mg/dL (0.6-1.0) Estimated GFR (Cockcroft-Gault) 22.8 21.6 BUN/Creatinine Ratio 14 (6-20) 13 (6-20) Glucose Level 111 mg/dL (70-99) 115 mg/dL (70-99) Calcium Level 8.3 mg/dL (8.5-10.1) 8.0 mg/dL (8.5-10.1) Magnesium Level 2.2 mg/dL (1.8-2.4) Total Bilirubin 1.1 mg/dL (0.2-1.0) 0.8 mg/dL (0.2-1.0) Aspartate Amino Transf (AST/SGOT) 29 U/L (15-37) 22 U/L (15-37) Alanine Aminotransferase (ALT/SGPT) 34 U/L (14-59) 28 U/L (14-59) Alkaline Phosphatase 102 U/L (46-116) 107 U/L (46-116) Troponin I High Sensitivity 13 ng/L (4-50) 13 ng/L (4-50) 12 ng/L (4-50) CJ-Yit-J-Type Natriuretic Peptide 1613 pg/mL (0-449) Total Protein 6.5 g/dL (6.4-8.2) 6.3 g/dL (6.4-8.2) Albumin 2.9 g/dL (3.4-5.0) 2.5 g/dL (3.4-5.0) Albumin/Globulin Ratio 0.8 (1.0-1.7) 0.7 (1.0-1.7) Thyroid Stimulating Hormone (TSH) 3.016 uIU/mL (0.358-3.74) Test 01/02/22 08:15 SARS-CoV-2 Antigen (Rapid) Negative (NEGATIVE) Assessment and Plan Assessmemt and Plan Problems Medical Problems: (1) Anemia Status: Acute (2) Chest pain Status: Acute (3) CKD (chronic kidney disease) Status: Acute (4) Hypoxia Status: Acute Acute respiratory failure with hypoxia - interstitial pattern concerning for viral, atypical pneumonia or more likely diastolic CHF or amiodarone effect. Will wean O2 as tolerated Chest pain - likely esophageal spasm from GERD/Gastroparesis vs less likely anginal, though acute CHF and pleuritic pain are possible as well. Cardiology consulted, trend trops, tele Shortness of breath - will treat as acute diastolic CHF, diurese. Nebs prn. Remote smoking history less likely to play a role. Will have pulm consulted to consider amio pulmonary tox Paroxysmal afib - on amio and eliquis. No BB or CCB noted on her med history. follows at [facility] with Dr Allred. Hold amio for abnormal chest radiograph. HTN - on furosemide. Will continue ?COPD - nebs ordered Essential tremor - patient says RLS, will reduce gabapentin for renal function CKD IV - Nephrology to see. Sees Dr. Rosenberg outpatient Hypothyroidism - cont home meds Insomnia - cont remeron Await cardiology pulmonary and nephrology input Home meds DVT prophylaxis Full code Trend labs FEN - Cardiac diet PPX - eliquis Comment Review of Relevant I have reviewed the following items geri (where applicable) has been applied. Medications: Current Medications Medications (Trade) Dose Ordered Sig/Kendall Route PRN Reason Start Time Stop Time Status Last Admin Dose Admin Nitroglycerin (Nitrostat) 0.4 mg PRN Q5MIN PRN SL CP RATING > 1/10 01/01/22 14:15 01/02/22 14:14 01/01/22 14:44 Morphine Sulfate (Morphine Sulfate) 4 mg PRN Q15MIN PRN IV/SQ PAIN GREATER THAN 3/10 01/01/22 14:15 01/01/22 16:57 DC 01/01/22 15:14 Budesonide (Pulmicort) 0.5 mg RTBID NEB 01/01/22 20:00 01/01/22 18:16 Albuterol/ Ipratropium (Duoneb) 3 ml RTQID NEB 01/01/22 20:00 01/01/22 18:16 Furosemide (Lasix) 80 mg 1X ONCE IVP 01/01/22 17:00 01/01/22 17:02 DC 01/01/22 18:00 Apixaban (Eliquis) 5 mg BID PO 01/01/22 21:00 01/02/22 08:09 Gabapentin (Neurontin) 300 mg QHS PO 01/01/22 21:00 01/01/22 21:02 Levothyroxine Sodium (Synthroid) 137 mcg DAILY06 PO 3/2/22 06:00 01/02/22 06:11 Atorvastatin Calcium (Lipitor) 80 mg QHS PO 01/01/22 21:00 01/01/22 21:02 Allopurinol (Zyloprim) 100 mg DAILY PO 01/02/22 09:00 01/02/22 08:09 Mirtazapine (Remeron) 15 mg QHS PO 01/01/22 21:00 01/01/22 21:03 Justifications for Admission Other Justification EDUARDO PORTILLO III DO Jan 02, 2022 10:23
[2022-01-02 11:13] VITALS: BP 127/71
--- NOTE | 2022-01-02 11:39 | RAD ---
XR CHEST 1V History: Congestive heart failure Comparison: 01/01/2022 Technique: Portable AP radiograph of the chest. Findings: Lungs are adequately inflated. There is no focal airspace consolidation, pleural effusion or pneumoth orax. There is prominent interstitial and pulmonary vascular markings throughout. Cardiac silhouette is normal in size. Calcification aortic arch. Degenerative changes of the spine and shoulders. Soft t issues are unremarkable. Impression: 1. Prominence of pulmonary vasculature and interstitial likely represent interstitial edema. Mildly improved aeration compared to prior exam. Electronically signed by: Amish Johnson MD (01/02/2022 11:37 AM) [id number]
--- NOTE | 2022-01-02 11:44 | PDOC2 ---
CONSULT Date of Consult Date of Consult DATE: 01/02/22 TIME: 11:36 Reason for Consult Reason for Consult: RENAL FAILURE Referring Physician Referring Physician: MARINE Identification/Chief Complaint Chief Complaint CHEST PAIN Source Source: Chart review, Patient History of Present Illness Reason for Visit: THIS IS A 76 YR OLD WITH CHEST PAIN AND SOB. CURRENTLY UNDERGOING CARDIOLOGY AND PULM EVALUATION. RENAL CONSULT DUE TO CR OF 2.2. I REVIEWED HER RECORDS AND SHE IS NOTED TO HAVE CKD STAGE [address] ALMONTE FOR OP RENAL FOLLOW UP. CKD FELT TO BE DUE TO HTN. NO OTHER HX. HAS BEEN ON APPROPRIATE BP MEDS BUT SOME HYPOTENSION NOTED ON ADMIT. SHE IS NOT FEELING LIGHT HEADED. NO NEPHROTOXINS NOTED Past Medical History Cardiovascular: HTN, Hyperlipidemia Pulmonary: COPD CENTRAL NERVOUS SYSTEM: Periperal neuropathy, Other GI: GERD, Other Heme/Onc: Anemia NOS Hepatobiliary: No pertinent hx Psych: Anxiety Musculoskeletal: Osteoarthritis, Other Rheumatologic: No pertinent hx Infectious disease: No pertinent hx Renal/: Chronic renal insuff, Urinary Incontinence Endocrine: Hypothyroidism Past Surgical History Past Surgical History: Cholecystectomy, Hernia Repair, Hysterectomy Family History Family History: Coronary Artery Disease, Hypertension Social History Quit (1997. Smoked for 30 years prior to that) ALCOHOL: none Drugs: None Lives: with Family Domestic Violence: Neg Current Problem List Problem List Problems Medical Problems: (1) Anemia Status: Acute (2) Chest pain Status: Acute (3) CKD (chronic kidney disease) Status: Acute (4) Hypoxia Status: Acute Current Medications Current Medications Current Medications Nitroglycerin (Nitrostat) 0.4 mg PRN Q5MIN PRN SL CP RATING > 1/10 Last administered on 01/01/22at 14:44; Start 01/01/22 at 14:15; Stop 01/02/22 at 14:14 Morphine Sulfate (Morphine Sulfate) 4 mg PRN Q15MIN PRN IV/SQ PAIN GREATER THAN 3/10 Last administered on 01/01/22at 15:14; Start 01/01/22 at 14:15; Stop 01/01/22 at 16:57; Status DC Fentanyl Citrate (Fentanyl 2ml Vial) 25 mcg PRN Q3HRS PRN IVP SEVERE PAIN 7-10; Start 01/01/22 at 17:00 Acetaminophen (Tylenol) 650 mg PRN Q6HRS PRN PO MILD PAIN / TEMP > 100.3'F; Start 01/01/22 at 17:00 Ondansetron HCl (Zofran) 4 mg PRN Q4HRS PRN IVP NAUSEA/VOMITING; Start 01/01/22 at 17:00 Tramadol HCl (Ultram) 50 mg PRN Q6HRS PRN PO MILD TO MODERATE PAIN; Start 01/01/22 at 17:00 Guaifenesin (Robitussin Dm) 10 ml PRN Q6HRS PRN PO COUGH; Start 01/01/22 at 17:00 Budesonide (Pulmicort) 0.5 mg RTBID NEB Last administered on 01/01/22at 18:16; Start 01/01/22 at 20:00 Hydralazine HCl (Apresoline Inj) 10 mg PRN Q4HRS PRN IVP ELEVATED BP, SEE COMMENTS; Start 01/01/22 at 17:00 Heparin Sodium (Porcine) (Heparin Sodium) 5,000 unit Q8HRS SQ ; Start 01/01/22 at 17:00; Stop 01/01/22 at 17:09; Status DC Albuterol/ Ipratropium (Duoneb) 3 ml RTQID NEB Last administered on 01/01/22at 18:16; Start 01/01/22 at 20:00 Albuterol Sulfate (Ventolin Neb Soln) 2.5 mg PRN Q4HRS PRN NEB SHORTNESS OF BREATH; Start 01/01/22 at 17:00 Furosemide (Lasix) 80 mg 1X ONCE IVP Last administered on 01/01/22at 18:00; Start 01/01/22 at 17:00; Stop 01/01/22 at 17:02; Status DC Apixaban (Eliquis) 5 mg BID PO Last administered on 01/02/22at 08:09; Start 01/01/22 at 21:00 Ondansetron HCl (Zofran) 4 mg PRN Q8HRS PRN IVP NAUSEA/VOMITING; Start 01/01/22 at 17:45; Stop 01/02/22 at 17:44 Morphine Sulfate (Morphine Sulfate) 4 mg PRN Q2HR PRN IVP PAIN; Start 01/01/22 at 17:45; Stop 01/02/22 at 17:44 Nitroglycerin (Nitrostat) 0.4 mg PRN Q5MIN PRN SL CHEST PAIN; Start 01/01/22 at 17:45; Stop 01/02/22 at 17:44 Gabapentin (Neurontin) 300 mg QHS PO Last administered on 01/01/22at 21:02; Start 01/01/22 at 21:00 Levothyroxine Sodium (Synthroid) 137 mcg DAILY06 PO Last administered on 01/02/22at 06:11; Start 01/02/22 at 06:00 Atorvastatin Calcium (Lipitor) 80 mg QHS PO Last administered on 01/01/22at 21:02; Start 01/01/22 at 21:00 Allopurinol (Zyloprim) 100 mg DAILY PO Last administered on 01/02/22at 08:09; Start 01/02/22 at 09:00 Mirtazapine (Remeron) 15 mg QHS PO Last administered on 01/01/22at 21:03; Start 01/01/22 at 21:00 Active Scripts Active Reported Calcitriol 0.25 Mcg Capsule 0.25 Mcg PO DAILY MDD 0.25 Oxybutynin Chloride 5 Mg Tablet 5 Mg PO DAILY MDD 5 Mirtazapine 15 Mg Tablet 15 Mg PO DAILY MDD 15 Furosemide 40 Mg Tablet 40 Mg PO DAILY MDD 40 Amiodarone Hcl 200 Mg Tablet 200 Mg PO DAILY MDD 200 Pepcid (Famotidine) 20 Mg Tablet 20 Mg PO BID Levothyroxine Sodium 137 Mcg Tablet 1 Tab PO DAILY Eliquis (Apixaban) 5 Mg Tablet 5 Mg PO BID Gabapentin (Gabapentin) 300 Mg Capsule 300 Mg PO BID [mag 500, vitamin D 3] Atorvastatin Calcium 80 Mg Tablet 80 Mg PO DAILY Citalopram Hbr (Citalopram Hydrobromide) 20 Mg Tablet 20 Mg PO DAILY Acetaminophen Ext.release (Acetaminophen) 650 Mg Tablet.er 650 Mg PO Allergies Allergies: Coded Allergies: ibuprofen (Unverified Allergy, Intermediate, 03/23/14) ROS General: YES: Fatigue, Malaise, Appetite PSYCHOLOGICAL ROS: YES: Anxiety Eyes: Yes Decreased vision HEENT: YES: Heacaches ALLERGY AND IMMUNOLOGY: YES: Seasonal Allergies Respiratory: YES: Cough Cardiovascular: yes Chest Pain Gastrointestinal: Yes Constipation Genitourinary: YES Other (OCC NOCTURIA) Musculoskeletal: Yes Muscular Weakness Neurological: Yes Weakness Skin: Yes Dry Skin Physical Exam General: Alert, Oriented X3, Cooperative, No acute distress HEENT: Atraumatic Lungs: Clear to auscultation Heart: Regular rate Abdomen: Normal bowel sounds, Soft, No tenderness Extremities: No clubbing Skin: No breakdown Neuro: Normal speech, Cranial nerves 3-12 NL Psych/Mental Status: Mental status NL, Mood NL MUSCULOSKELETAL: No joint tenderness, No deformity Vitals VITALS Vital Signs Date Time Temp Pulse Resp B/P (MAP) Pulse Ox O2 Delivery O2 Flow Rate FiO2 01/02/22 11:13 97.9 72 18 127/71 (89) 95 Nasal Cannula 3.0 97.9 Labs Labs Laboratory Tests Test 01/01/22 14:15 01/01/22 16:43 01/01/22 19:55 01/02/22 05:05 White Blood Count 6.5 x10^3/uL (4.0-11.0) 5.8 x10^3/uL (4.0-11.0) Red Blood Count 3.63 x10^6/uL (3.50-5.40) 3.29 x10^6/uL (3.50-5.40) Hemoglobin 10.5 g/dL (12.0-15.5) 9.6 g/dL (12.0-15.5) Hematocrit 32.9 % (36.0-47.0) 30.9 % (36.0-47.0) Mean Corpuscular Volume 91 fL (79-100) 94 fL (79-100) Mean Corpuscular Hemoglobin 29 pg (25-35) 29 pg (25-35) Mean Corpuscular Hemoglobin Concent 32 g/dL (31-37) 31 g/dL (31-37) Red Cell Distribution Width 17.7 % (11.5-14.5) 18.0 % (11.5-14.5) Platelet Count 309 x10^3/uL (140-400) 291 x10^3/uL (140-400) Neutrophils (%) (Auto) 72 % (31-73) 76 % (31-73) Lymphocytes (%) (Auto) 18 % (24-48) 12 % (24-48) Monocytes (%) (Auto) 7 % (0-9) 10 % (0-9) Eosinophils (%) (Auto) 2 % (0-3) 2 % (0-3) Basophils (%) (Auto) 0 % (0-3) 1 % (0-3) Neutrophils # (Auto) 4.7 x10^3/uL (1.8-7.7) 4.4 x10^3/uL (1.8-7.7) Lymphocytes # (Auto) 1.2 x10^3/uL (1.0-4.8) 0.7 x10^3/uL (1.0-4.8) Monocytes # (Auto) 0.5 x10^3/uL (0.0-1.1) 0.6 x10^3/uL (0.0-1.1) Eosinophils # (Auto) 0.1 x10^3/uL (0.0-0.7) 0.1 x10^3/uL (0.0-0.7) Basophils # (Auto) 0.0 x10^3/uL (0.0-0.2) 0.0 x10^3/uL (0.0-0.2) Sodium Level 145 mmol/L (136-145) 145 mmol/L (136-145) Potassium Level 4.4 mmol/L (3.5-5.1) 3.9 mmol/L (3.5-5.1) Chloride Level 105 mmol/L (98-107) 103 mmol/L (98-107) Carbon Dioxide Level 29 mmol/L (21-32) 31 mmol/L (21-32) Anion Gap 11 (6-14) 11 (6-14) Blood Urea Nitrogen 29 mg/dL (7-20) 29 mg/dL (7-20) Creatinine 2.1 mg/dL (0.6-1.0) 2.2 mg/dL (0.6-1.0) Estimated GFR (Cockcroft-Gault) 22.8 21.6 BUN/Creatinine Ratio 14 (6-20) 13 (6-20) Glucose Level 111 mg/dL (70-99) 115 mg/dL (70-99) Calcium Level 8.3 mg/dL (8.5-10.1) 8.0 mg/dL (8.5-10.1) Magnesium Level 2.2 mg/dL (1.8-2.4) Total Bilirubin 1.1 mg/dL (0.2-1.0) 0.8 mg/dL (0.2-1.0) Aspartate Amino Transf (AST/SGOT) 29 U/L (15-37) 22 U/L (15-37) Alanine Aminotransferase (ALT/SGPT) 34 U/L (14-59) 28 U/L (14-59) Alkaline Phosphatase 102 U/L (46-116) 107 U/L (46-116) Troponin I High Sensitivity 13 ng/L (4-50) 13 ng/L (4-50) 12 ng/L (4-50) WA-Sos-L-Type Natriuretic Peptide 1613 pg/mL (0-449) Total Protein 6.5 g/dL (6.4-8.2) 6.3 g/dL (6.4-8.2) Albumin 2.9 g/dL (3.4-5.0) 2.5 g/dL (3.4-5.0) Albumin/Globulin Ratio 0.8 (1.0-1.7) 0.7 (1.0-1.7) Thyroid Stimulating Hormone (TSH) 3.016 uIU/mL (0.358-3.74) Test 01/02/22 08:15 SARS-CoV-2 Antigen (Rapid) Negative (NEGATIVE) Laboratory Tests Test 01/01/22 14:15 01/01/22 16:43 01/01/22 19:55 01/02/22 05:05 White Blood Count 6.5 x10^3/uL (4.0-11.0) 5.8 x10^3/uL (4.0-11.0) Red Blood Count 3.63 x10^6/uL (3.50-5.40) 3.29 x10^6/uL (3.50-5.40) Hemoglobin 10.5 g/dL (12.0-15.5) 9.6 g/dL (12.0-15.5) Hematocrit 32.9 % (36.0-47.0) 30.9 % (36.0-47.0) Mean Corpuscular Volume 91 fL (79-100) 94 fL (79-100) Mean Corpuscular Hemoglobin 29 pg (25-35) 29 pg (25-35) Mean Corpuscular Hemoglobin Concent 32 g/dL (31-37) 31 g/dL (31-37) Red Cell Distribution Width 17.7 % (11.5-14.5) 18.0 % (11.5-14.5) Platelet Count 309 x10^3/uL (140-400) 291 x10^3/uL (140-400) Neutrophils (%) (Auto) 72 % (31-73) 76 % (31-73) Lymphocytes (%) (Auto) 18 % (24-48) 12 % (24-48) Monocytes (%) (Auto) 7 % (0-9) 10 % (0-9) Eosinophils (%) (Auto) 2 % (0-3) 2 % (0-3) Basophils (%) (Auto) 0 % (0-3) 1 % (0-3) Neutrophils # (Auto) 4.7 x10^3/uL (1.8-7.7) 4.4 x10^3/uL (1.8-7.7) Lymphocytes # (Auto) 1.2 x10^3/uL (1.0-4.8) 0.7 x10^3/uL (1.0-4.8) Monocytes # (Auto) 0.5 x10^3/uL (0.0-1.1) 0.6 x10^3/uL (0.0-1.1) Eosinophils # (Auto) 0.1 x10^3/uL (0.0-0.7) 0.1 x10^3/uL (0.0-0.7) Basophils # (Auto) 0.0 x10^3/uL (0.0-0.2) 0.0 x10^3/uL (0.0-0.2) Sodium Level 145 mmol/L (136-145) 145 mmol/L (136-145) Potassium Level 4.4 mmol/L (3.5-5.1) 3.9 mmol/L (3.5-5.1) Chloride Level 105 mmol/L (98-107) 103 mmol/L (98-107) Carbon Dioxide Level 29 mmol/L (21-32) 31 mmol/L (21-32) Anion Gap 11 (6-14) 11 (6-14) Blood Urea Nitrogen 29 mg/dL (7-20) 29 mg/dL (7-20) Creatinine 2.1 mg/dL (0.6-1.0) 2.2 mg/dL (0.6-1.0) Estimated GFR (Cockcroft-Gault) 22.8 21.6 BUN/Creatinine Ratio 14 (6-20) 13 (6-20) Glucose Level 111 mg/dL (70-99) 115 mg/dL (70-99) Calcium Level 8.3 mg/dL (8.5-10.1) 8.0 mg/dL (8.5-10.1) Magnesium Level 2.2 mg/dL (1.8-2.4) Total Bilirubin 1.1 mg/dL (0.2-1.0) 0.8 mg/dL (0.2-1.0) Aspartate Amino Transf (AST/SGOT) 29 U/L (15-37) 22 U/L (15-37) Alanine Aminotransferase (ALT/SGPT) 34 U/L (14-59) 28 U/L (14-59) Alkaline Phosphatase 102 U/L (46-116) 107 U/L (46-116) Troponin I High Sensitivity 13 ng/L (4-50) 13 ng/L (4-50) 12 ng/L (4-50) IV-Vpc-A-Type Natriuretic Peptide 1613 pg/mL (0-449) Total Protein 6.5 g/dL (6.4-8.2) 6.3 g/dL (6.4-8.2) Albumin 2.9 g/dL (3.4-5.0) 2.5 g/dL (3.4-5.0) Albumin/Globulin Ratio 0.8 (1.0-1.7) 0.7 (1.0-1.7) Thyroid Stimulating Hormone (TSH) 3.016 uIU/mL (0.358-3.74) Test 01/02/22 08:15 SARS-CoV-2 Antigen (Rapid) Negative (NEGATIVE) Images Images PATIENT: ALLIE LERNER ACCOUNT: [id number] : 1945 LOCATION: ER AGE: 76 SEX: F EXAM STATUS: PRE ER ORD. PHYSICIAN: ESTELA LEBRON APRN REASON: chest pain PROCEDURE: PORTABLE CHEST 1V XR CHEST 1V History: Chest pain Comparison: None. Technique: Portable AP radiograph of the chest. Findings: The lungs are hypoinflated. There are bibasilar opacities and diffuse interstitial opacities. The pulmonary vasculature is indistinct. Suspect small pleural effusions. No pneumothorax. Cardiac silhouette is at the upper limits of normal for size. Soft tissues and osseous structures are unremarkable. Impression: 1. Diffuse interstitial opacities and small pleural effusions may represent interstitial edema in the appropriate clinical setting. Superimposed atelectasis or infection is not excluded. Electronically signed by: Amish Johnson MD (01/01/2022 2:19 PM) [id number] Assessment/Plan Assessment/Plan IMP CKD STAGE 4-CR STABLE AT BASELINE OF ABOUT 2.2 DYSPNEA CHEST PAIN HTN HX MILD HYPOTENSION HX OF TOBACCOISM PROB COPD PLAN CARDIOLOGY AND PULM EVALUATION RESUME HOME LASIX LABS IN AM WILL FOLLOW ANDRES MCKEE MD Jan 02, 2022 11:44
[2022-01-02] MEDS: FUROSEMIDE 40 MG TABLET. PO SCH (13:14)
--- NOTE | 2022-01-02 13:26 | NUR ---
SS following for discharge planning. SS reviewed pt chart and discussed with pt RN. Pt is from home and is currently requiring oxygen at three liters nasal canula. COVID19 negative. Nephrology, Pulmonology, and Cardiology consulted. SS will continue to follow for discharge planning.
[2022-01-02 15:00] VITALS: BP 111/58
[2022-01-02 19:02] VITALS: BP 131/62
[2022-01-02] MEDS: GABAPENTIN 300 MG CAPSULE. PO SCH (20:34)
[2022-01-02] MEDS: ATORVASTATIN CALCIUM 40 MG TABLET. PO SCH (20:34)
[2022-01-02] MEDS: MIRTAZAPINE 15 MG TABLET PO SCH (20:34)
[2022-01-02 22:48] VITALS: BP 101/58
[2022-01-03 02:58] VITALS: BP 112/58
[2022-01-03 05:17] LABS: CALCIUM 8.5 mg/dL (8.5-10.1); CREATININE 2.2 mg/dL (0.6-1.0); GFR 21.6; POTASSIUM 3.9 mmol/L (3.5-5.1)
[2022-01-03] MEDS: LEVOTHYROXINE 137 MCG TABLET PO SCH (06:00)
[2022-01-03 07:00] VITALS: BP 118/56
[2022-01-03] MEDS: IPRATRPIUM/ALBUTEROL 0.5/2.5MG 3 ML NEBU. NEB SCH ×4 (08:00→20:27)
[2022-01-03] MEDS: BUDESONIDE 0.5 MG/2 ML NEBU. NEB SCH ×2 (08:00→20:27)
[2022-01-03] MEDS: FUROSEMIDE 40 MG TABLET. PO SCH (09:11)
[2022-01-03] MEDS: ALLOPURINOL 100 MG TABLET. PO SCH (09:11)
[2022-01-03] MEDS: APIXABAN 5 MG TABLET. PO SCH ×2 (09:11→20:13)
--- NOTE | 2022-01-03 10:26 | PDOC ---
Renal-Progress Notes Subjective Notes Notes NO NEW COMPLAINTS History of Present Illness Hx of present illness STABLE, NO CHEST PAIN TODAY Vitals Vitals Vital Signs Date Time Temp Pulse Resp B/P (MAP) Pulse Ox O2 Delivery O2 Flow Rate FiO2 01/03/22 08:00 Nasal Cannula 2.0 01/03/22 07:00 98.2 73 16 118/56 (76) 98 98.2 Weight Weight [ ] I.O. Intake and Output Intake and Output 01/03/22 07:00 Intake Total 910 ml Output Total 875 ml Balance 35 ml Intake Oral 910 ml Output Urine Total 875 ml # Voids 1 Labs Labs Laboratory Tests Test 01/03/22 04:35 Sodium Level 143 mmol/L (136-145) Potassium Level 3.9 mmol/L (3.5-5.1) Chloride Level 102 mmol/L (98-107) Carbon Dioxide Level 32 mmol/L (21-32) Anion Gap 9 (6-14) Blood Urea Nitrogen 30 mg/dL (7-20) Creatinine 2.2 mg/dL (0.6-1.0) Estimated GFR (Cockcroft-Gault) 21.6 Glucose Level 125 mg/dL (70-99) Calcium Level 8.5 mg/dL (8.5-10.1) Review of Systems Constitutional: yes: alert, oriented Ears/Nose/Throat: Yes: no symptom reported Eyes: Yes: no symptom reported Pulmonary: Yes no symptom reported Cardiovascular: Yes chest pain Gastrointestional: Yes: no symptom reported Musculoskeletal: Yes: muscle stiffness Skin: Yes no symptom reported Psychiatric/Neurological: Yes: no symptom reported Endocrine: Yes: no symptom reported Physical Exam General Appearance: no apparent distress Skin: warm Respiratory: bilateral CTA Heart: S1S2 Abdomen: soft, bowel sounds present Genitourinary: bladder flat Extremities: pulses present Neurology: alert, oriented Musculoskeletal: Osteoarthritis, Other Assessment Assessment IMP CKD STAGE 4-CR STABLE AT BASELINE OF ABOUT 2.2 DYSPNEA CHEST PAIN HTN HX MILD HYPOTENSION-IMPROVED HX OF TOBACCOISM PROB COPD PLAN CARDIOLOGY AND PULM EVALUATION RESUME HOME LASIX LABS IN AM D/W CARDIOLOGY WILL FOLLOW ANDRES MCKEE MD Jan 03, 2022 10:26
--- NOTE | 2022-01-03 10:43 | PDOC ---
CARDIO Progress Notes Date and Time Date of Service 01/03/2022 Time of Evaluation 1030 Subjective Subjective: No Chest Pain, No shortness of breath, No Palpitations Vitals Vitals Vital Signs Date Time Temp Pulse Resp B/P (MAP) Pulse Ox O2 Delivery O2 Flow Rate FiO2 01/03/22 08:00 Nasal Cannula 2.0 01/03/22 07:00 98.2 73 16 118/56 (76) 98 98.2 Weight Weight [ ] Input and Output Intake and Output Intake and Output 01/03/22 07:00 Intake Total 910 ml Output Total 875 ml Balance 35 ml Intake Oral 910 ml Output Urine Total 875 ml # Voids 1 Laboratory Labs Laboratory Tests Test 01/03/22 04:35 Sodium Level 143 mmol/L (136-145) Potassium Level 3.9 mmol/L (3.5-5.1) Chloride Level 102 mmol/L (98-107) Carbon Dioxide Level 32 mmol/L (21-32) Anion Gap 9 (6-14) Blood Urea Nitrogen 30 mg/dL (7-20) Creatinine 2.2 mg/dL (0.6-1.0) Estimated GFR (Cockcroft-Gault) 21.6 Glucose Level 125 mg/dL (70-99) Calcium Level 8.5 mg/dL (8.5-10.1) Review of Systems Constitutional: yes: alert, oriented Ears/Nose/Throat: Yes: no symptom reported Eyes: Yes: no symptom reported Pulmonary: Yes no symptom reported Cardiovascular: Yes chest pain Gastrointestional: Yes: no symptom reported Musculoskeletal: Yes: muscle stiffness Skin: Yes no symptom reported Psychiatric/Neurological: Yes: no symptom reported Endocrine: Yes: no symptom reported Physical Exam HEENT: Neck Supple W Full Motion Chest: Symmetric LUNGS: Clear to Auscultation Heart: S1S2, RRR (SR) Abdomen: No Bruits, Soft N/T Extremities: No Calf Tenderness Neurology: alert, oriented, follow commands Assessment Assessment 1. Chest pain: UA features 2. PAFIB: SR 3. Acute on chronic diastolic CHF: compensated 4. HTN: controlled 5. HLP 6. COPD 7. CKD4 Recommendations 1. MPI today. TTE 2. Restart amiodarone. lasix therapy 3. Secondary prevention measures 4. Eliquis for stroke prevention Justicifation of Admission Dx: Justifications for Admission: Justification of Admission Dx: Yes VIVIANA HE APRN Jan 03, 2022 10:43
[2022-01-03] MEDS ORDERED: POTASSIUM CHLORIDE 10 MEQ TABLET.ER. PO ONE (10:45)
--- NOTE | 2022-01-03 10:53 | PDOC ---
[facility] PROGRESS NOTE Date of Service DOS: DATE: 01/03/22 TIME: 10:49 Chief Complaint Chief Complaint Acute on chronic respiratory failure Probable bronchitis Severe cough Hypoxia Chest pain History of GERD Shortness of air History of paroxysmal A. fib Hypertension Possible COPD Tremors Chronic kidney disease Hypothyroidism Insomnia History of Present Illness History of Present Illness 01/03/2022 Patient seen and examined She has an obvious harsh cough consistent with bronchitis? (She states she does not smoke) Discussed with RN Chart reviewed Discussed with case management She is going for a stress test today if her Covid testing is negative 01/02/2022 Patient seen and examined Discussed with RN Discussed with case management Chart reviewed Patient states she feels a little better today Vitals/I&O Vitals/I&O: Vital Signs Date Time Temp Pulse Resp B/P (MAP) Pulse Ox O2 Delivery O2 Flow Rate FiO2 01/03/22 08:00 Nasal Cannula 2.0 01/03/22 07:00 98.2 73 16 118/56 (76) 98 98.2 I & O 01/02/22 01/02/22 01/03/22 15:00 23:00 07:00 Intake Total 560 ml 350 ml 0 ml Output Total 600 ml 275 ml Balance 560 ml -250 ml -275 ml Physical Exam General: Alert, Oriented X3, Cooperative, No acute distress Heart: Regular rate Lungs: Clear, Other (Harsh cough consistent with bronchitis) Abdomen: Normal bowel sounds, Soft, No tenderness Extremities: No clubbing Skin: No breakdown Labs Labs: Laboratory Tests Test 01/03/22 04:35 Sodium Level 143 mmol/L (136-145) Potassium Level 3.9 mmol/L (3.5-5.1) Chloride Level 102 mmol/L (98-107) Carbon Dioxide Level 32 mmol/L (21-32) Anion Gap 9 (6-14) Blood Urea Nitrogen 30 mg/dL (7-20) Creatinine 2.2 mg/dL (0.6-1.0) Estimated GFR (Cockcroft-Gault) 21.6 Glucose Level 125 mg/dL (70-99) Calcium Level 8.5 mg/dL (8.5-10.1) Assessment and Plan Assessmemt and Plan Problems Medical Problems: (1) Anemia Status: Acute (2) Chest pain Status: Acute (3) CKD (chronic kidney disease) Status: Acute (4) Hypoxia Status: Acute Acute on chronic respiratory failure Probable bronchitis Possible CHF Severe cough Hypoxia Chest pain History of GERD Shortness of air History of paroxysmal A. fib Hypertension Possible COPD Tremors Chronic kidney disease Hypothyroidism Insomnia Plan She is going for a stress test today if her Covid testing is negative I am adding in cough syrup for her presumed bronchitis cough I am adding in empiric IV antibiotics for her presumed bronchitis Plus minus steroids if pulmonary agrees DuoNeb O2 as needed Continue amiodarone and Eliquis for her A. fib Continue Lasix Home meds DVT prophylaxis Full code Appreciate cardiology pulmonary and nephrology input Long-term prognosis guarded Comment Review of Relevant I have reviewed the following items geri (where applicable) has been applied. Medications: Current Medications Medications (Trade) Dose Ordered Sig/Kendall Route PRN Reason Start Time Stop Time Status Last Admin Dose Admin Furosemide (Lasix) 40 mg DAILY PO 01/02/22 13:00 01/03/22 09:11 Justifications for Admission Other Justification EDUARDO PORTILLO III DO Jan 03, 2022 10:53
[2022-01-03 11:00] VITALS: BP 124/59
[2022-01-03] MEDS ORDERED: REGADENOSON 0.4 MG/5 ML DISP.SYRIN. IV ONE (11:15)
--- NOTE | 2022-01-03 12:16 | RAD ---
CT THORAX WO History: Atypical infection versus interstitial lung disease, amiodarone toxicity. Comparison: CT chest angiography 03/24/2014 Technique: Noncontrast CT of the chest. Findings: Assessment is limited by lack of IV contrast. Cardiovascular: Normal caliber aorta and pulmonary arteries. Moderate aortic atherosclerotic calcific ation. Moderate coronary artery atherosclerotic calcification. Heart size is normal. No pericardial e ffusion. Mediastinum and wesley: Normal thyroid. No adenopathy. Small sliding hiatal hernia. Airways, lungs and pleura: Expiratory appearance of the trachea. Motion artifact limits evaluation of the lower lungs. The airways are patent. Bilateral groundglass opacities without a particular apical to basal gradient. Mild peripheral subpleural reticulation. No honeycombing. No mosaic attenuation. No pleural effusion or pneumothorax. Calcified granuloma left lower lobe. Upper abdomen: Diffuse increased attenuation of the liver and spleen. Osseous structures and soft tissues: Within normal limits for age. Impression: 1. Nonspecific pattern of bilateral groundglass attenuation and mild peripheral reticulation in the lungs. Groundglass attenuation is exaggerated by exhalatory technique. Pattern is unlikely to represe nt UIP. Appearance is not characteristic for Amiodarone lung toxicity, however it is not excluded. At ypical infectious process, and interstitial lung disease such as NSIP remain within the differential. 2. High attenuation of the liver and spleen which can be seen in patients exposed amiodarone with or without lung toxicity. ------ Exposure: One or more of the following individualized dose reduction techniques were utilized for thi s examination: 1. Automated exposure control 2. Adjustment of the mA and/or kV according to patient size 3. Use of iterative reconstruction technique. Electronically signed by: Amish Johnson MD (01/03/2022 12:14 PM) [id number]
--- NOTE | 2022-01-03 13:07 | PDOC ---
PULMONARY PROGRESS NOTES DATE: 01/03/22 TIME: 13:04 Subjective Patient does not feel any better. Remains on nasal cannula. Vitals Vital Signs Date Time Temp Pulse Resp B/P (MAP) Pulse Ox O2 Delivery O2 Flow Rate FiO2 01/03/22 08:00 Nasal Cannula 2.0 01/03/22 07:00 98.2 73 16 118/56 (76) 98 98.2 General: Alert, Oriented X4 Lungs: Clear Cardiovascular: S1, S2 Abdomen: Non-tender Neuro Exam: Alert Extremities: Other (Trace edema) Labs Laboratory Tests Test 01/01/22 14:15 01/01/22 16:43 01/01/22 19:55 01/02/22 05:05 White Blood Count 6.5 x10^3/uL (4.0-11.0) 5.8 x10^3/uL (4.0-11.0) Red Blood Count 3.63 x10^6/uL (3.50-5.40) 3.29 x10^6/uL (3.50-5.40) Hemoglobin 10.5 g/dL (12.0-15.5) 9.6 g/dL (12.0-15.5) Hematocrit 32.9 % (36.0-47.0) 30.9 % (36.0-47.0) Mean Corpuscular Volume 91 fL (79-100) 94 fL (79-100) Mean Corpuscular Hemoglobin 29 pg (25-35) 29 pg (25-35) Mean Corpuscular Hemoglobin Concent 32 g/dL (31-37) 31 g/dL (31-37) Red Cell Distribution Width 17.7 % (11.5-14.5) 18.0 % (11.5-14.5) Platelet Count 309 x10^3/uL (140-400) 291 x10^3/uL (140-400) Neutrophils (%) (Auto) 72 % (31-73) 76 % (31-73) Lymphocytes (%) (Auto) 18 % (24-48) 12 % (24-48) Monocytes (%) (Auto) 7 % (0-9) 10 % (0-9) Eosinophils (%) (Auto) 2 % (0-3) 2 % (0-3) Basophils (%) (Auto) 0 % (0-3) 1 % (0-3) Neutrophils # (Auto) 4.7 x10^3/uL (1.8-7.7) 4.4 x10^3/uL (1.8-7.7) Lymphocytes # (Auto) 1.2 x10^3/uL (1.0-4.8) 0.7 x10^3/uL (1.0-4.8) Monocytes # (Auto) 0.5 x10^3/uL (0.0-1.1) 0.6 x10^3/uL (0.0-1.1) Eosinophils # (Auto) 0.1 x10^3/uL (0.0-0.7) 0.1 x10^3/uL (0.0-0.7) Basophils # (Auto) 0.0 x10^3/uL (0.0-0.2) 0.0 x10^3/uL (0.0-0.2) Sodium Level 145 mmol/L (136-145) 145 mmol/L (136-145) Potassium Level 4.4 mmol/L (3.5-5.1) 3.9 mmol/L (3.5-5.1) Chloride Level 105 mmol/L (98-107) 103 mmol/L (98-107) Carbon Dioxide Level 29 mmol/L (21-32) 31 mmol/L (21-32) Anion Gap 11 (6-14) 11 (6-14) Blood Urea Nitrogen 29 mg/dL (7-20) 29 mg/dL (7-20) Creatinine 2.1 mg/dL (0.6-1.0) 2.2 mg/dL (0.6-1.0) Estimated GFR (Cockcroft-Gault) 22.8 21.6 BUN/Creatinine Ratio 14 (6-20) 13 (6-20) Glucose Level 111 mg/dL (70-99) 115 mg/dL (70-99) Calcium Level 8.3 mg/dL (8.5-10.1) 8.0 mg/dL (8.5-10.1) Magnesium Level 2.2 mg/dL (1.8-2.4) Total Bilirubin 1.1 mg/dL (0.2-1.0) 0.8 mg/dL (0.2-1.0) Aspartate Amino Transf (AST/SGOT) 29 U/L (15-37) 22 U/L (15-37) Alanine Aminotransferase (ALT/SGPT) 34 U/L (14-59) 28 U/L (14-59) Alkaline Phosphatase 102 U/L (46-116) 107 U/L (46-116) Troponin I High Sensitivity 13 ng/L (4-50) 13 ng/L (4-50) 12 ng/L (4-50) UU-Itw-V-Type Natriuretic Peptide 1613 pg/mL (0-449) Total Protein 6.5 g/dL (6.4-8.2) 6.3 g/dL (6.4-8.2) Albumin 2.9 g/dL (3.4-5.0) 2.5 g/dL (3.4-5.0) Albumin/Globulin Ratio 0.8 (1.0-1.7) 0.7 (1.0-1.7) Thyroid Stimulating Hormone (TSH) 3.016 uIU/mL (0.358-3.74) Test 01/02/22 08:15 01/03/22 04:35 Coronavirus (COVID-19)(PCR) Not detected (NOT DETECTD) SARS-CoV-2 Antigen (Rapid) Negative (NEGATIVE) Sodium Level 143 mmol/L (136-145) Potassium Level 3.9 mmol/L (3.5-5.1) Chloride Level 102 mmol/L (98-107) Carbon Dioxide Level 32 mmol/L (21-32) Anion Gap 9 (6-14) Blood Urea Nitrogen 30 mg/dL (7-20) Creatinine 2.2 mg/dL (0.6-1.0) Estimated GFR (Cockcroft-Gault) 21.6 Glucose Level 125 mg/dL (70-99) Calcium Level 8.5 mg/dL (8.5-10.1) Laboratory Tests Test 01/03/22 04:35 Sodium Level 143 mmol/L (136-145) Potassium Level 3.9 mmol/L (3.5-5.1) Chloride Level 102 mmol/L (98-107) Carbon Dioxide Level 32 mmol/L (21-32) Anion Gap 9 (6-14) Blood Urea Nitrogen 30 mg/dL (7-20) Creatinine 2.2 mg/dL (0.6-1.0) Estimated GFR (Cockcroft-Gault) 21.6 Glucose Level 125 mg/dL (70-99) Calcium Level 8.5 mg/dL (8.5-10.1) Medications Active Scripts Medications Dose Route/Sig Max Daily Dose Days Date Category Calcitriol 0.25 Mcg Capsule 0.25 Mcg PO DAILY MDD 0.25 01/02/22 Reported Oxybutynin Chloride 5 Mg Tablet 5 Mg PO DAILY MDD 5 01/02/22 Reported Mirtazapine 15 Mg Tablet 15 Mg PO DAILY MDD 15 01/02/22 Reported Furosemide 40 Mg Tablet 40 Mg PO DAILY MDD 40 01/02/22 Reported Amiodarone Hcl 200 Mg Tablet 200 Mg PO DAILY MDD 200 01/02/22 Reported Pepcid (Famotidine) 20 Mg Tablet 20 Mg PO BID 01/01/22 Reported Levothyroxine Sodium 137 Mcg Tablet 1 Tab PO DAILY 01/01/22 Reported Eliquis (Apixaban) 5 Mg Tablet 5 Mg PO BID 01/01/22 Reported Gabapentin (Gabapentin) 300 Mg Capsule 300 Mg PO BID 03/24/14 Reported [mag 500, vitamin D 3] 03/22/14 Reported Atorvastatin Calcium 80 Mg Tablet 80 Mg PO DAILY 03/22/14 Reported Citalopram Hbr (Citalopram Hydrobromide) 20 Mg Tablet 20 Mg PO DAILY 03/22/14 Reported Acetaminophen Ext.release (Acetaminophen) 650 Mg Tablet.er 650 Mg PO 03/22/14 Reported Impression . IMPRESSION: 1. Acute hypoxic respiratory failure with dyspnea and chest burning. Likely acute diastolic congestive heart failure. Could be systolic heart failure as well. Clinically less likely amiodarone induced pneumonitis but cannot be completely ruled out. 2. Abnormal chest x-ray with bilateral interstitial infiltrates suggestive of congestive heart failure. 3. updated on COVID vaccine with Jonel and Jonel. COVID rapid is negative. 4. Chronic kidney disease. 5. Moderate protein-calorie malnutrition. 6. Likely underlying chronic obstructive pulmonary disease. Smoked for 30 years. Plan . 1. Clinically unchanged. Chest x-ray with mild improvement in interstitial infiltrates. Cannot exclude amiodarone-induced interstitial lung disease but clinically less likely. I would try IV Lasix again and a follow-up chest x-ray. I will also obtain sedimentation rate. If no improvement clinically or radiographically, then may consider doing a right heart cath. 2. Monitor renal function while on diuretics. 3. Continue Eliquis for atrial fibrillation. 4. Cardiology recommendations, awaiting. 5. Continue DuoNebs along with Pulmicort. 6. Obtain echocardiogram. CONG TREVINO MD Jan 03, 2022 13:06
[2022-01-03] MEDS ORDERED: FUROSEMIDE 40 MG/4 ML VIAL. IVP ONE (13:15)
--- NOTE | 2022-01-03 14:35 | NUR ---
SS following up with discharge planning. SS reviewed pt chart and discussed with pt RN. Pt is currently requiring oxygen at three liters nasal canula. Pt has no home oxygen. Pt on IV Rocephin. Cardiology, Pulmonology, and Nephrology following. Stress test today. Not ready. SS will continue to follow for discharge planning.
[2022-01-03] MEDS: AMIODARONE HCL 200 MG TABLET. PO SCH (15:03)
[2022-01-03] MEDS: cefTRIAXone IV Push 1 GM VIAL. IVP SCH (15:13)
[2022-01-03] MEDS: guaiFENesin/CODEINE 100mg/10mg 5 ML LIQUID PO PRN ×2 (15:22→21:27)
[2022-01-03 19:00] VITALS: BP 94/53
[2022-01-03] MEDS: MIRTAZAPINE 15 MG TABLET PO SCH (20:12)
[2022-01-03] MEDS: GABAPENTIN 300 MG CAPSULE. PO SCH (20:13)
[2022-01-03] MEDS: ATORVASTATIN CALCIUM 40 MG TABLET. PO SCH (20:13)
[2022-01-03 22:22] VITALS: BP 86/47
[2022-01-04 02:07] VITALS: BP 100/55
[2022-01-04 04:56] LABS: CALCIUM 8.7 mg/dL (8.5-10.1); CREATININE 2.4 mg/dL (0.6-1.0); GFR 19.5; POTASSIUM 3.7 mmol/L (3.5-5.1)
[2022-01-04] MEDS: LEVOTHYROXINE 137 MCG TABLET PO SCH (05:53)
[2022-01-04 07:00] VITALS: BP 117/56
[2022-01-04] MEDS: BUDESONIDE 0.5 MG/2 ML NEBU. NEB SCH ×2 (07:04→21:06)
[2022-01-04] MEDS: IPRATRPIUM/ALBUTEROL 0.5/2.5MG 3 ML NEBU. NEB SCH ×4 (07:04→21:06)
[2022-01-04] MEDS ORDERED: REGADENOSON 0.4 MG/5 ML DISP.SYRIN. IV ONE (08:30)
--- NOTE | 2022-01-04 08:32 | RAD ---
XR CHEST 1V History: Congestive heart failure. Comparison: 01/02/2022 Technique: Portable AP radiograph of the chest. Findings: The lungs are adequately inflated. Mildly prominent pulmonary vasculature persists. No focal consolid ation, pleural effusion or pneumothorax. The cardiomediastinal silhouette is within normal limits. Ca lcification aortic arch. Mild degenerative changes the shoulders. Soft tissues are unremarkable. Impression: 1. Stable chest with prominent pulmonary vasculature. Electronically signed by: Amish Johnson MD (01/04/2022 8:29 AM) [id number]
--- NOTE | 2022-01-04 08:43 | PDOC ---
[employer] PROGRESS NOTE Date of Service DOS: DATE: 01/04/22 TIME: 08:42 Chief Complaint Chief Complaint Acute on chronic respiratory failure Probable bronchitis Severe cough Hypoxia Chest pain History of GERD Shortness of air History of paroxysmal A. fib Hypertension Possible COPD Tremors Chronic kidney disease Hypothyroidism Insomnia History of Present Illness History of Present Illness 01/04/22 Patient seen and examined Was returning from [facility] so we will await those results Appeared comfortable Chart reviewed Discussed with RN and case management 01/03/2022 Patient seen and examined She has an obvious harsh cough consistent with bronchitis? (She states she does not smoke) Discussed with RN Chart reviewed Discussed with case management She is going for a stress test today if her Covid testing is negative 01/02/2022 Patient seen and examined Discussed with RN Discussed with case management Chart reviewed Patient states she feels a little better today Vitals/I&O Vitals/I&O: Vital Signs Date Time Temp Pulse Resp B/P (MAP) Pulse Ox O2 Delivery O2 Flow Rate FiO2 01/04/22 07:04 Nasal Cannula 3.0 01/04/22 07:00 98.2 82 20 117/56 (76) 100 98.2 I & O 01/03/22 01/03/22 01/04/22 15:00 23:00 07:00 Intake Total 0 ml 0 ml 0 ml Balance 0 ml 0 ml 0 ml Physical Exam General: Alert, Oriented X3, Cooperative, No acute distress Heart: Regular rate Lungs: Clear Abdomen: Normal bowel sounds, Soft, No tenderness Extremities: No clubbing Skin: No breakdown Labs Labs: Laboratory Tests Test 01/03/22 16:49 01/04/22 04:00 Erythrocyte Sedimentation Rate 80 (0-25) Sodium Level 143 mmol/L (136-145) Potassium Level 3.7 mmol/L (3.5-5.1) Chloride Level 101 mmol/L (98-107) Carbon Dioxide Level 32 mmol/L (21-32) Anion Gap 10 (6-14) Blood Urea Nitrogen 34 mg/dL (7-20) Creatinine 2.4 mg/dL (0.6-1.0) Estimated GFR (Cockcroft-Gault) 19.5 Glucose Level 125 mg/dL (70-99) Calcium Level 8.7 mg/dL (8.5-10.1) Assessment and Plan Assessmemt and Plan Problems Medical Problems: (1) Anemia Status: Acute (2) Chest pain Status: Acute (3) CKD (chronic kidney disease) Status: Acute (4) Hypoxia Status: Acute Assessment Acute on chronic respiratory failure Probable bronchitis Possible CHF Severe cough Hypoxia Chest pain History of GERD Shortness of air History of paroxysmal A. fib Hypertension Possible COPD Tremors Chronic kidney disease Hypothyroidism Insomnia Plan Await MPI results Cough syrup Empiric IV antibiotics for her presumed bronchitis Cont steroids DuoNeb O2 as needed Continue amiodarone and Eliquis for her A. fib Continue Lasix Home meds DVT prophylaxis Full code Appreciate cardiology pulmonary and nephrology input Long-term prognosis guarded Comment Review of Relevant I have reviewed the following items geri (where applicable) has been applied. Medications: Current Medications Medications (Trade) Dose Ordered Sig/Kendall Route PRN Reason Start Time Stop Time Status Last Admin Dose Admin Amiodarone HCl (Cordarone) 200 mg DAILY PO 01/03/22 11:00 01/03/22 15:03 Potassium Chloride (Klor-Con) 10 meq 1X ONCE PO 01/03/22 10:45 01/03/22 10:46 DC 01/03/22 15:03 Ceftriaxone Sodium (Rocephin) 1 gm Q24H IVP 01/03/22 12:00 01/03/22 15:13 Guaifenesin/ Codeine Phosphate (Robitussin Ac) 5 ml PRN Q6HRS PRN PO COUGH 01/03/22 11:00 01/03/22 21:27 Regadenoson (Lexiscan) 0.4 mg 1X ONCE IV 01/03/22 11:15 01/03/22 11:16 DC 01/03/22 11:15 Furosemide (Lasix) 40 mg 1X ONCE IVP 01/03/22 13:15 01/03/22 13:16 DC 01/03/22 15:05 Justifications for Admission Other Justification EDUARDO PORTILLO III DO Jan 04, 2022 08:43
--- NOTE | 2022-01-04 10:49 | PDOC ---
Renal-Progress Notes Subjective Notes Notes NO NEW COMPLAINTS History of Present Illness Hx of present illness STABLE Vitals Vitals Vital Signs Date Time Temp Pulse Resp B/P (MAP) Pulse Ox O2 Delivery O2 Flow Rate FiO2 01/04/22 08:00 Nasal Cannula 3.0 01/04/22 07:00 98.2 82 20 117/56 (76) 100 98.2 Weight Weight [ ] I.O. Intake and Output Intake and Output 01/04/22 07:00 Intake Total 0 ml Balance 0 ml Intake Oral 0 ml # Voids 2 Labs Labs Laboratory Tests Test 01/03/22 16:49 01/04/22 04:00 Erythrocyte Sedimentation Rate 80 (0-25) Sodium Level 143 mmol/L (136-145) Potassium Level 3.7 mmol/L (3.5-5.1) Chloride Level 101 mmol/L (98-107) Carbon Dioxide Level 32 mmol/L (21-32) Anion Gap 10 (6-14) Blood Urea Nitrogen 34 mg/dL (7-20) Creatinine 2.4 mg/dL (0.6-1.0) Estimated GFR (Cockcroft-Gault) 19.5 Glucose Level 125 mg/dL (70-99) Calcium Level 8.7 mg/dL (8.5-10.1) Review of Systems Constitutional: yes: alert, oriented Ears/Nose/Throat: Yes: no symptom reported Eyes: Yes: no symptom reported Pulmonary: Yes no symptom reported Cardiovascular: Yes chest pain Gastrointestional: Yes: no symptom reported Musculoskeletal: Yes: muscle stiffness Skin: Yes no symptom reported Psychiatric/Neurological: Yes: no symptom reported Endocrine: Yes: no symptom reported Physical Exam General Appearance: no apparent distress Skin: warm Respiratory: bilateral CTA Heart: S1S2 Abdomen: soft, bowel sounds present Genitourinary: bladder flat Extremities: pulses present Neurology: alert, oriented, follow commands Musculoskeletal: Osteoarthritis, Other Assessment Assessment IMP CKD STAGE 4-CR STABLE AT BASELINE OF ABOUT 2.4 DYSPNEA CHEST PAIN HTN HX MILD HYPOTENSION-IMPROVED HX OF TOBACCOISM PROB COPD PLAN CARDIOLOGY AND PULM EVALUATION CONT LASIX AND KCL LABS IN AM AWAIT MPI RESULTS WILL FOLLOW ANDRES MCKEE MD Jan 04, 2022 10:49
--- NOTE | 2022-01-04 10:50 | PDOC ---
PULMONARY PROGRESS NOTES DATE: 01/04/22 TIME: 10:48 Subjective Patient feels much better. Currently on nasal cannula now. Vitals Vital Signs Date Time Temp Pulse Resp B/P (MAP) Pulse Ox O2 Delivery O2 Flow Rate FiO2 01/04/22 08:00 Nasal Cannula 3.0 01/04/22 07:00 98.2 82 20 117/56 (76) 100 98.2 General: Alert, Oriented X4 Lungs: Clear Cardiovascular: S1, S2 Abdomen: Non-tender Neuro Exam: Alert Extremities: Other Labs Laboratory Tests Test 01/03/22 04:35 01/03/22 16:49 01/04/22 04:00 Sodium Level 143 mmol/L (136-145) 143 mmol/L (136-145) Potassium Level 3.9 mmol/L (3.5-5.1) 3.7 mmol/L (3.5-5.1) Chloride Level 102 mmol/L (98-107) 101 mmol/L (98-107) Carbon Dioxide Level 32 mmol/L (21-32) 32 mmol/L (21-32) Anion Gap 9 (6-14) 10 (6-14) Blood Urea Nitrogen 30 mg/dL (7-20) 34 mg/dL (7-20) Creatinine 2.2 mg/dL (0.6-1.0) 2.4 mg/dL (0.6-1.0) Estimated GFR (Cockcroft-Gault) 21.6 19.5 Glucose Level 125 mg/dL (70-99) 125 mg/dL (70-99) Calcium Level 8.5 mg/dL (8.5-10.1) 8.7 mg/dL (8.5-10.1) Erythrocyte Sedimentation Rate 80 (0-25) Laboratory Tests Test 01/03/22 16:49 01/04/22 04:00 Erythrocyte Sedimentation Rate 80 (0-25) Sodium Level 143 mmol/L (136-145) Potassium Level 3.7 mmol/L (3.5-5.1) Chloride Level 101 mmol/L (98-107) Carbon Dioxide Level 32 mmol/L (21-32) Anion Gap 10 (6-14) Blood Urea Nitrogen 34 mg/dL (7-20) Creatinine 2.4 mg/dL (0.6-1.0) Estimated GFR (Cockcroft-Gault) 19.5 Glucose Level 125 mg/dL (70-99) Calcium Level 8.7 mg/dL (8.5-10.1) Medications Active Scripts Medications Dose Route/Sig Max Daily Dose Days Date Category Calcitriol 0.25 Mcg Capsule 0.25 Mcg PO DAILY MDD 0.25 01/02/22 Reported Oxybutynin Chloride 5 Mg Tablet 5 Mg PO DAILY MDD 5 01/02/22 Reported Mirtazapine 15 Mg Tablet 15 Mg PO DAILY MDD 15 01/02/22 Reported Furosemide 40 Mg Tablet 40 Mg PO DAILY MDD 40 01/02/22 Reported Amiodarone Hcl 200 Mg Tablet 200 Mg PO DAILY MDD 200 01/02/22 Reported Pepcid (Famotidine) 20 Mg Tablet 20 Mg PO BID 01/01/22 Reported Levothyroxine Sodium 137 Mcg Tablet 1 Tab PO DAILY 01/01/22 Reported Eliquis (Apixaban) 5 Mg Tablet 5 Mg PO BID 01/01/22 Reported Gabapentin (Gabapentin) 300 Mg Capsule 300 Mg PO BID 03/24/14 Reported [mag 500, vitamin D 3] 03/22/14 Reported Atorvastatin Calcium 80 Mg Tablet 80 Mg PO DAILY 03/22/14 Reported Citalopram Hbr (Citalopram Hydrobromide) 20 Mg Tablet 20 Mg PO DAILY 03/22/14 Reported Acetaminophen Ext.release (Acetaminophen) 650 Mg Tablet.er 650 Mg PO 03/22/14 Reported Comments Chest x-ray reviewed 01/04/2022. Resolution of previously seen interstitial infiltrates Impression . IMPRESSION: 1. Acute hypoxic respiratory failure with dyspnea and chest burning. Likely acute diastolic congestive heart failure. Clinically less likely amiodarone induced pneumonitis as chest x-ray has resolved infiltrates post diuresis 2. Abnormal chest x-ray with bilateral interstitial infiltrates suggestive of congestive heart failure. Resolved with aggressive diuresis. 3. updated on COVID vaccine with miiCard and miiCard. COVID rapid is negative. 4. Chronic kidney disease. 5. Moderate protein-calorie malnutrition. 6. Likely underlying chronic obstructive pulmonary disease. Smoked for 30 years. 7. Echocardiogram with grade 2 diastolic dysfunction Plan . 1. Clinically much better. Has responded to diuretics 2. Monitor renal function while on diuretics. 3. Continue Eliquis for atrial fibrillation. 4. Cardiology recommendations 5. Continue DuoNebs along with Pulmicort. 6. Okay with discharge from a pulmonary standpoint. We will sign off for now CONG TREVINO MD Jan 04, 2022 10:50
[2022-01-04 11:00] VITALS: BP 164/68
--- NOTE | 2022-01-04 11:17 | RAD ---
MR#: [id number] Date of Study: 01/04/2022 Ordering Physician: VIVIANA HE, Referring Physician: DEV EASTON Tech: SUDARSHAN Hobbs APPROVED REPORT Test Type: Pharmacological Stress Nurse/Tech: Mike Cifuentes RN Test Indications: Atrial fibrillation, chest pain Cardiac History: COPD Medications: See Electronic Medical Record Medical History: See Electronic Medical Record Resting ECG: SR Resting Heart Rate: 88 bpm Resting Blood Pressure: 142/53mmHg Pretest Chest Pain: None Nurse/Tech Notes Lungs clear with diminished bases, S1S2 Consent: The procedure was explained to the patient in lay terms. Informed consent was witnessed. Alireza eout was entered into [employer]. History and Stress Test performed by RT Betty (R) (N) Pharm. Details Pharmacologic stress testing was performed using 0.4mg per 5ml of regadenoson given intravenously ove r 7-10 seconds. Stress Symptoms No chest pain or symptoms. POST EXERCISE Reason for Termination: Infusion complete Max HR: 94 bpm Max Blood Pressure: 140/52mmHg Blood Pressure response to exercise: Normal blood pressure response during stress. Heart Rate response to exercise: normal response Chest Pain: No. Arrhythmia: No. ST Change: No. INTERPRETATION Stress EKG Conclusion: The resting EKG shows a sinus rhythm with mild nonspecific ST-T wave changes. The stress EKG shows no significant changes from baseline. No EKG evidence of stress-induced ischemia. Imaging Protocol IMAGE PROTOCOL: Rest Tc-99m/stress Tc-99m 2 days Rest: Stress: Viability: Radiopharm.Tc99m DeitvucevGu94j Sestamibi Madl13iVd 35mCi Duration 13min. 13min. Img Date 01/03/2022 01/04/2022 Inj-Img Fkrb21hps. 60min. Rest Admin Site:IV - Right HandAdministrator:RT Betty (R)(N) Stress Admin Site: IV - Left AntecubitalAdministrator: RT Betty (R)(N) STRESS DATA End Diast. Vol.86.0mlAv. Heart Rate87.0bpm End Syst. Vol.17.0mlCO Index BSA0.0L/min Myocardial Wmtv629.0gEject. Fptqilhv85.0% Stress Rates Pk. Fill Rate4.31EDV/secLVtime Pk. Fill 192.93msec Pk. Empty Rate5.16ESV/secLVtime Pk. Xbqjh884.62msec 1/3 Pk. Fill1.66EDV/sec Stress Scores Regional WT0.00Summed WT1.00 Regional WM0.00Summed WM0.00 LV Perfusion The stress scans show mild inferior wall thinning. The rest scans show mild inferior wall thinning. Nuclear imaging shows no reversible ischemia. Nuclear imaging shows a fixed inferior wall defect most consistent with an attenuation defect on a 2- day study. Wall Motion LV systolic function is normal with an ejection fraction of greater than 75%. LV Perf. Quant 17 Seg. SSS8.00 17 Seg. SRS4.00 17 Seg. SDS4.00 Stress Defect Extent (% LAD)0.00Rest Defect Extent (% LAD)0.00Rev. Defect Extent (% LAD)0.00 Stress Defect Extent (% LCX) 18.80Rest Defect Extent (% LCX)1.30Rev. Defect Extent (% LCX)0.00 Stress Defect Extent (% RCA)16.70Rest Defect Extent (% RCA)21.10Rev. Defect Extent (% RCA)0.00 Stress Defect Extent (% FERNANDO)11.70Rest Defect Extent (% FERNANDO)8.30Rev. Defect Extent (% FERNANDO)0.20 Conclusion 1. No EKG evidence of stress-induced ischemia. 2. Nuclear imaging shows no reversible ischemia. 3. Nuclear imaging shows fixed mild inferior wall thinning most consistent with a attenuation defect. 4. LV systolic function is normal with an ejection fraction of greater than 75%. 5. Moderately low risk Lexiscan nuclear stress test. Signed by : Kennedy Adan MD Electronically Approved : 01/04/2022 11:16:52
[2022-01-04] MEDS: cefTRIAXone IV Push 1 GM VIAL. IVP SCH (11:31)
[2022-01-04] MEDS: APIXABAN 5 MG TABLET. PO SCH ×2 (11:31→20:21)
[2022-01-04] MEDS: POTASSIUM CHLORIDE 10 MEQ TABLET.ER. PO SCH (11:32)
[2022-01-04] MEDS: AMIODARONE HCL 200 MG TABLET. PO SCH (11:32)
[2022-01-04] MEDS: ALLOPURINOL 100 MG TABLET. PO SCH (11:32)
[2022-01-04] MEDS: FUROSEMIDE 40 MG TABLET. PO SCH (11:33)
--- NOTE | 2022-01-04 14:02 | NUR ---
SS following up with discharge planning. SS reviewed pt chart and discussed with pt RN. Pt is currently on room air. COVID19 negative. Cardiology, Pulmonology, and Nephrology following. Pt on IV Rocephin. Pt completed stress test today. Discharge plan is currently to home when medically ready for discharge. SS will continue to follow for discharge planning.
[2022-01-04 15:00] VITALS: BP 164/68
--- NOTE | 2022-01-04 15:33 | PDOC ---
VIVIANA HE UNDERCOVER OPERATOR 01/04/22 1533: CARDIO Progress Notes Date and Time Date of Service 01/04/2022 Time of Evaluation 1510 Subjective Subjective: No Chest Pain, No shortness of breath, No Palpitations Vitals Vitals Vital Signs Date Time Temp Pulse Resp B/P (MAP) Pulse Ox O2 Delivery O2 Flow Rate FiO2 01/04/22 11:32 93 168/68 01/04/22 11:24 Room Air 01/04/22 11:00 20 93 01/04/22 08:00 3.0 01/04/22 07:00 98.2 98.2 Weight Weight [ ] Input and Output Intake and Output Intake and Output 01/04/22 07:00 Intake Total 0 ml Balance 0 ml Intake Oral 0 ml # Voids 2 Laboratory Labs Laboratory Tests Test 01/03/22 16:49 01/04/22 04:00 Erythrocyte Sedimentation Rate 80 (0-25) Sodium Level 143 mmol/L (136-145) Potassium Level 3.7 mmol/L (3.5-5.1) Chloride Level 101 mmol/L (98-107) Carbon Dioxide Level 32 mmol/L (21-32) Anion Gap 10 (6-14) Blood Urea Nitrogen 34 mg/dL (7-20) Creatinine 2.4 mg/dL (0.6-1.0) Estimated GFR (Cockcroft-Gault) 19.5 Glucose Level 125 mg/dL (70-99) Calcium Level 8.7 mg/dL (8.5-10.1) Review of Systems Constitutional: yes: alert, oriented Ears/Nose/Throat: Yes: no symptom reported Eyes: Yes: no symptom reported Pulmonary: Yes no symptom reported Cardiovascular: Yes chest pain Gastrointestional: Yes: no symptom reported Musculoskeletal: Yes: muscle stiffness Skin: Yes no symptom reported Psychiatric/Neurological: Yes: no symptom reported Endocrine: Yes: no symptom reported Physical Exam HEENT: Neck Supple W Full Motion Chest: Symmetric LUNGS: Clear to Auscultation Heart: S1S2, RRR (SR) Abdomen: Soft N/T Extremities: No Calf Tenderness Neurology: alert, oriented, follow commands Assessment Assessment 1. Chest pain: MPI revealed no ischemic changes 2. PAFIB: SR 3. Acute on chronic diastolic CHF: compensated 4. HTN: controlled 5. HLP 6. COPD 7. CKD4 Recommendations 1. TTE pending 2. Amiodarone. lasix therapy 3. Secondary prevention measures 4. Eliquis for stroke prevention Justicifation of Admission Dx: Justifications for Admission: Justification of Admission Dx: Yes ROME SARAVIA MD 01/04/22 6105: CARDIO Progress Notes Assessment Assessment Patient seen and examined The patient is feeling better. She denies chest pain. I agree with our nurse practitioners assessment and plan. Chest pain: Chest pain resolved. MPI showed no ischemic changes. We will continue medical treatment. PAFIB: SR. on amiodarone. Eliquis for stroke prevention. Acute on chronic diastolic CHF: compensated. Continuing present treatment. HTN: controlled HLP COPD CKD4. Monitor lab. VIVIANA HE APRN Jan 04, 2022 15:33 ROME SARAVIA MD Jan 04, 2022 17:55
[2022-01-04 19:16] VITALS: BP 90/46
[2022-01-04] MEDS: guaiFENesin/CODEINE 100mg/10mg 5 ML LIQUID PO PRN (20:20)
[2022-01-04] MEDS: MIRTAZAPINE 15 MG TABLET PO SCH (20:21)
[2022-01-04] MEDS: GABAPENTIN 300 MG CAPSULE. PO SCH (20:21)
[2022-01-04] MEDS: ATORVASTATIN CALCIUM 40 MG TABLET. PO SCH (20:21)
[2022-01-04 23:20] VITALS: BP 119/50
[2022-01-05 03:40] VITALS: BP 113/54
[2022-01-05] MEDS: LEVOTHYROXINE 137 MCG TABLET PO SCH (05:49)
[2022-01-05 06:03] LABS: ALBUMIN 2.4 g/dL (3.4-5.0); ALBUMIN/GLOBULIN RATIO 0.6 (1.0-1.7); CALCIUM 8.8 mg/dL (8.5-10.1); CREATININE 2.5 mg/dL (0.6-1.0); GFR 18.6; POTASSIUM 3.6 mmol/L (3.5-5.1); TOTAL BILIRUBIN 0.4 mg/dL (0.2-1.0); TOTAL PROTEIN 6.3 g/dL (6.4-8.2)
[2022-01-05 07:00] VITALS: BP 126/61
[2022-01-05] MEDS: POTASSIUM CHLORIDE 10 MEQ TABLET.ER. PO SCH (08:00)
[2022-01-05] MEDS: IPRATRPIUM/ALBUTEROL 0.5/2.5MG 3 ML NEBU. NEB SCH ×2 (08:03→11:49)
[2022-01-05] MEDS: BUDESONIDE 0.5 MG/2 ML NEBU. NEB SCH (08:03)
[2022-01-05] MEDS: FUROSEMIDE 40 MG TABLET. PO SCH (08:39)
[2022-01-05] MEDS: AMIODARONE HCL 200 MG TABLET. PO SCH (08:39)
[2022-01-05] MEDS: ALLOPURINOL 100 MG TABLET. PO SCH (08:39)
[2022-01-05] MEDS: APIXABAN 5 MG TABLET. PO SCH (08:39)
--- NOTE | 2022-01-05 09:45 | PDOC ---
PROGRESS NOTES Date of Service: DATE: 01/05/22 TIME: 09:45 Subjective Subjective Feeling better. Denied any chest pain or shortness of breath Objective Objective Vital Signs Date Time Temp Pulse Resp B/P (MAP) Pulse Ox O2 Delivery O2 Flow Rate FiO2 01/05/22 08:39 74 126/61 01/05/22 08:06 91 Room Air 01/05/22 08:00 2.0 01/05/22 07:00 20 01/05/22 03:40 99.0 99.0 Intake and Output 01/05/22 07:00 Intake Total 60 ml Output Total 0 ml Balance 60 ml Intake Oral 60 ml Output Urine Total 0 ml Physical Exam Abdomen: Normal bowel sounds, Soft, No tenderness Heart: Regular rate Extremities: No clubbing General: Alert, Oriented X3, Cooperative, No acute distress HEENT: Atraumatic Lungs: Clear to auscultation MUSCULOSKELETAL: No joint tenderness, No deformity Neuro: Normal speech, Cranial nerves 3-12 NL Psych/Mental Status: Mental status NL, Mood NL Skin: No breakdown Assessment Assessment 1. Chest pain: MPI revealed no ischemic changes 2. PAFIB: SR 3. Acute on chronic diastolic CHF: compensated 4. HTN: controlled 5. HLP 6. COPD 7. CKD4 Recommendations 1. Eliquis for stroke prevention 2. Amiodarone. lasix therapy 3. Secondary prevention measures Plan Plan of Care Problems Medical Problems: (1) Anemia Status: Acute (2) Chest pain Status: Acute (3) CKD (chronic kidney disease) Status: Acute (4) Hypoxia Status: Acute Comment Review of Relevant I have reviewed the following items geri (where applicable) has been applied. Labs Laboratory Tests Test 01/05/22 04:00 Sodium Level 142 mmol/L (136-145) Potassium Level 3.6 mmol/L (3.5-5.1) Chloride Level 101 mmol/L (98-107) Carbon Dioxide Level 31 mmol/L (21-32) Anion Gap 10 (6-14) Blood Urea Nitrogen 38 mg/dL (7-20) Creatinine 2.5 mg/dL (0.6-1.0) Estimated GFR (Cockcroft-Gault) 18.6 BUN/Creatinine Ratio 15 (6-20) Glucose Level 122 mg/dL (70-99) Calcium Level 8.8 mg/dL (8.5-10.1) Total Bilirubin 0.4 mg/dL (0.2-1.0) Aspartate Amino Transf (AST/SGOT) 22 U/L (15-37) Alanine Aminotransferase (ALT/SGPT) 22 U/L (14-59) Alkaline Phosphatase 102 U/L (46-116) Total Protein 6.3 g/dL (6.4-8.2) Albumin 2.4 g/dL (3.4-5.0) Albumin/Globulin Ratio 0.6 (1.0-1.7) Vitals/I & O Vital Sign - Last 24 Hours 01/04/22 01/04/22 01/04/22 01/04/22 11:00 11:24 11:32 15:00 Pulse 93 93 93 Resp 20 20 B/P (MAP) 164/68 (100) 168/68 164/68 (100) Pulse Ox 93 93 O2 Delivery Room Air Room Air Room Air 01/04/22 01/04/22 01/04/22 01/04/22 16:14 19:16 19:17 20:00 Temp 99.3 99.3 Pulse 95 Resp 22 B/P (MAP) 90/46 (61) Pulse Ox 87 95 O2 Delivery Room Air Room Air Nasal Cannula Nasal Cannula O2 Flow Rate 2.0 3.0 01/04/22 01/04/22 01/04/22 01/05/22 21:07 21:07 23:20 03:40 Temp 99.2 99.0 99.2 99.0 Pulse 90 79 Resp 21 B/P (MAP) 119/50 (73) 113/54 (73) Pulse Ox 94 94 O2 Delivery Room Air Room Air Nasal Cannula Nasal Cannula O2 Flow Rate 2.0 2.0 01/05/22 01/05/22 01/05/22 01/05/22 07:00 08:00 08:06 08:39 Pulse 74 74 Resp 20 B/P (MAP) 126/61 (82) 126/61 Pulse Ox 97 91 O2 Delivery Room Air Nasal Cannula Room Air O2 Flow Rate 2.0 Intake and Output 01/04/22 01/04/22 01/05/22 15:00 23:00 07:00 Intake Total 60 ml Output Total 0 ml Balance 60 ml 0 ml VINICIO YADAV MD Jan 05, 2022 09:45
[2022-01-05 10:20] VITALS: BP 124/59
--- NOTE | 2022-01-05 11:28 | PDOC ---
PULMONARY PROGRESS NOTES DATE: 01/05/22 TIME: 11:28 Subjective Patient feels much better. Currently on nasal cannula now. Vitals Vital Signs Date Time Temp Pulse Resp B/P (MAP) Pulse Ox O2 Delivery O2 Flow Rate FiO2 01/05/22 10:20 98.6 82 16 124/59 (80) 93 Nasal Cannula 3.0 98.6 General: Alert, Oriented X4 Lungs: Clear Cardiovascular: S1, S2 Abdomen: Non-tender Neuro Exam: Alert Extremities: Other Labs Laboratory Tests Test 01/03/22 16:49 01/04/22 04:00 01/05/22 04:00 Erythrocyte Sedimentation Rate 80 (0-25) Sodium Level 143 mmol/L (136-145) 142 mmol/L (136-145) Potassium Level 3.7 mmol/L (3.5-5.1) 3.6 mmol/L (3.5-5.1) Chloride Level 101 mmol/L (98-107) 101 mmol/L (98-107) Carbon Dioxide Level 32 mmol/L (21-32) 31 mmol/L (21-32) Anion Gap 10 (6-14) 10 (6-14) Blood Urea Nitrogen 34 mg/dL (7-20) 38 mg/dL (7-20) Creatinine 2.4 mg/dL (0.6-1.0) 2.5 mg/dL (0.6-1.0) Estimated GFR (Cockcroft-Gault) 19.5 18.6 Glucose Level 125 mg/dL (70-99) 122 mg/dL (70-99) Calcium Level 8.7 mg/dL (8.5-10.1) 8.8 mg/dL (8.5-10.1) BUN/Creatinine Ratio 15 (6-20) Total Bilirubin 0.4 mg/dL (0.2-1.0) Aspartate Amino Transf (AST/SGOT) 22 U/L (15-37) Alanine Aminotransferase (ALT/SGPT) 22 U/L (14-59) Alkaline Phosphatase 102 U/L (46-116) Total Protein 6.3 g/dL (6.4-8.2) Albumin 2.4 g/dL (3.4-5.0) Albumin/Globulin Ratio 0.6 (1.0-1.7) Laboratory Tests Test 01/05/22 04:00 Sodium Level 142 mmol/L (136-145) Potassium Level 3.6 mmol/L (3.5-5.1) Chloride Level 101 mmol/L (98-107) Carbon Dioxide Level 31 mmol/L (21-32) Anion Gap 10 (6-14) Blood Urea Nitrogen 38 mg/dL (7-20) Creatinine 2.5 mg/dL (0.6-1.0) Estimated GFR (Cockcroft-Gault) 18.6 BUN/Creatinine Ratio 15 (6-20) Glucose Level 122 mg/dL (70-99) Calcium Level 8.8 mg/dL (8.5-10.1) Total Bilirubin 0.4 mg/dL (0.2-1.0) Aspartate Amino Transf (AST/SGOT) 22 U/L (15-37) Alanine Aminotransferase (ALT/SGPT) 22 U/L (14-59) Alkaline Phosphatase 102 U/L (46-116) Total Protein 6.3 g/dL (6.4-8.2) Albumin 2.4 g/dL (3.4-5.0) Albumin/Globulin Ratio 0.6 (1.0-1.7) Medications Active Scripts Medications Dose Route/Sig Max Daily Dose Days Date Category Calcitriol 0.25 Mcg Capsule 0.25 Mcg PO DAILY MDD 0.25 01/02/22 Reported Oxybutynin Chloride 5 Mg Tablet 5 Mg PO DAILY MDD 5 01/02/22 Reported Mirtazapine 15 Mg Tablet 15 Mg PO DAILY MDD 15 01/02/22 Reported Furosemide 40 Mg Tablet 40 Mg PO DAILY MDD 40 01/02/22 Reported Amiodarone Hcl 200 Mg Tablet 200 Mg PO DAILY MDD 200 01/02/22 Reported Pepcid (Famotidine) 20 Mg Tablet 20 Mg PO BID 01/01/22 Reported Levothyroxine Sodium 137 Mcg Tablet 1 Tab PO DAILY 01/01/22 Reported Eliquis (Apixaban) 5 Mg Tablet 5 Mg PO BID 01/01/22 Reported Gabapentin (Gabapentin) 300 Mg Capsule 300 Mg PO BID 03/24/14 Reported [mag 500, vitamin D 3] 03/22/14 Reported Atorvastatin Calcium 80 Mg Tablet 80 Mg PO DAILY 03/22/14 Reported Citalopram Hbr (Citalopram Hydrobromide) 20 Mg Tablet 20 Mg PO DAILY 03/22/14 Reported Acetaminophen Ext.release (Acetaminophen) 650 Mg Tablet.er 650 Mg PO 03/22/14 Reported Comments Chest x-ray reviewed 01/04/2022. Resolution of previously seen interstitial infiltrates Impression . IMPRESSION: 1. Acute hypoxic respiratory failure with dyspnea and chest burning. Likely acute diastolic congestive heart failure. Clinically less likely amiodarone induced pneumonitis as chest x-ray has resolved infiltrates post diuresis 2. Abnormal chest x-ray with bilateral interstitial infiltrates suggestive of congestive heart failure. Resolved with aggressive diuresis. 3. updated on COVID vaccine with [employer] and [employer]. COVID rapid is negative. 4. Chronic kidney disease. 5. Moderate protein-calorie malnutrition. 6. Likely underlying chronic obstructive pulmonary disease. Smoked for 30 years. 7. Echocardiogram with grade 2 diastolic dysfunction Plan . 1. Clinically much better. Has responded to diuretics 2. Monitor renal function while on diuretics. 3. Continue Eliquis for atrial fibrillation. 4. Cardiology recommendations 5. Continue DuoNebs along with Pulmicort. 6. Okay with discharge from a pulmonary standpoint. 7. Arrange oxygen based on 6-minute walk test. CONG TREVINO MD Jan 05, 2022 11:28
[2022-01-05] MEDS: cefTRIAXone IV Push 1 GM VIAL. IVP SCH (12:00)
[2022-01-05] MEDS ORDERED: POTA10TA12 PO (12:05)
[2022-01-05] MEDS ORDERED: TRAM50TA PO (12:05)
[2022-01-05] MEDS ORDERED: ALBU2.5V8 NEB (12:05)
[2022-01-05] MEDS ORDERED: ALLO100T PO (12:05)
--- NOTE | 2022-01-05 12:07 | SNU/HH DC ---
DISCHARGE WITH HOME HEALTH DISCHARGE INFORMATION: Final Diagnosis: Problems Medical Problems: (1) Anemia Status: Acute (2) Chest pain Status: Acute (3) CKD (chronic kidney disease) Status: Acute (4) Hypoxia Status: Acute Condition on Discharge: Stable CODE STATUS: Code Status: Full HOME HEALTH: Face to Face: I certify this patient is under my care and that I, or a nurse practitioner or physician's civil engineering assistant working with me, had a face to face encounter that meets the physician face to face encounter requirements with this patient on []. Medical Complications: Other (Recent admission for chest pain) [facility] For: Assess & Educate Safety RN For Eval/Treatment: Yes Physical Therapy For: Evalulation/Treatment Occupational Therapy For: Evaluation/Treatment Home Health Aide For: Self-care CARPET BINDER For: Community Resources Pt Meets Homebound Status: Unsteady balance w/ amb, POST DISCHARGE ORDERS: Activity Instructions for Disc: No restrictions Weight Bearing Status after Di: No restrictions DIET AFTER DISCHARGE: Cardiac TREATMENT/EQUIPMENT ORDERS: Adaptive Equipment Issued: None CERTIFICATION STATEMENT: Certification Statement: Certification Statement: Based on the above finding, I certify that this patient is confined to the home and needs intermittent group home care, physical therapy and/or speech therapy, or continues to need occupational therapy.~ This patient is under my care, and I have initiated the establishment of the plan of care.~ This patient will be followed by myself or a community physician who will periodically review the plan of care. Home Meds Active Scripts Allopurinol (ALLOPURINOL) 100 Mg Tablet, 100 MG PO DAILY for . for 30 Days, #30 TAB Prov:CASTLE,NIAL K III DO 01/05/22 Potassium Chloride (KLOR-CON 10) 10 Meq Tablet.er, 10 MEQ PO DAILYWBKFT for . for 30 Days, #30 TAB.SR Prov:CASTLE,NIAL K III DO 01/05/22 Tramadol Hcl (TRAMADOL HCL) 50 Mg Tablet, 50 MG PO PRN Q6HRS PRN for MILD TO MODERATE PAIN for 7 Days, #14 TAB Prov:CASTLE,NIAL K III DO 01/05/22 Albuterol Sulfate (Proair Hfa) 8.5 Gm Hfa.aer.ad, 2.5 MG NEB PRN Q4HRS PRN for SHORTNESS OF BREATH for 14 Days, #1 INHALER Prov:CASTLE,NIAL K III DO 01/05/22 Reported Medications Calcitriol (CALCITRIOL) 0.25 Mcg Capsule, 0.25 MCG PO DAILY for ckd MDD 0.25 01/02/22 Oxybutynin Chloride (OXYBUTYNIN CHLORIDE) 5 Mg Tablet, 5 MG PO DAILY for bladder MDD 5 01/02/22 Mirtazapine (MIRTAZAPINE) 15 Mg Tablet, 15 MG PO DAILY for antidepressant MDD 15 01/02/22 Furosemide (FUROSEMIDE) 40 Mg Tablet, 40 MG PO DAILY for diuretic MDD 40 01/02/22 Amiodarone Hcl (AMIODARONE HCL) 200 Mg Tablet, 200 MG PO DAILY for heart rate MDD 200 01/02/22 Famotidine (PEPCID) 20 Mg Tablet, 20 MG PO BID for anti acid, TAB 01/01/22 Levothyroxine Sodium (LEVOTHYROXINE SODIUM) 137 Mcg Tablet, 1 TAB PO DAILY for thyroidism, #30 TAB 5 Refills 01/01/22 Apixaban (ELIQUIS) 5 Mg Tablet, 5 MG PO BID for a-fib, TAB 01/01/22 Gabapentin (GABAPENTIN ) 300 Mg Capsule, 300 MG PO BID for pain 03/24/14 [mag 500, vitamin D 3] No Conflict Check 03/22/14 Atorvastatin Calcium (ATORVASTATIN CALCIUM) 80 Mg Tablet, 80 MG PO DAILY 03/22/14 Citalopram Hydrobromide (CITALOPRAM HBR) 20 Mg Tablet, 20 MG PO DAILY 03/22/14 Acetaminophen Er (ACETAMINOPHEN EXT.RELEASE) 650 Mg Tablet.er, 650 MG PO 03/22/14 Discontinued Reported Medications Lisinopril (LISINOPRIL) 5 Mg Tablet, 5 MG PO DAILY 03/22/14 Omeprazole (OMEPRAZOLE) 20 Mg Capsule.dr, 20 MG PO DAILY 03/22/14 Levothyroxine Sodium (LEVOTHYROXINE SODIUM) 25 Mcg Tablet, 25 MCG PO DAILY 03/22/14 Niacin (SLO-NIACIN) 500 Mg Tablet.er, 500 MG PO DAILY 03/22/14 Aspirin (ASPIRIN) 81 Mg Tab.chew, 81 MG PO DAILY, TAB.CHEW 03/22/14 EDUARDO PORTILLO III DO Jan 05, 2022 12:07
--- NOTE | 2022-01-05 12:28 | PDOC ---
Renal-Progress Notes Subjective Notes Notes NO NEW COMPLAINTS History of Present Illness Hx of present illness FEELING BETTER Vitals Vitals Vital Signs Date Time Temp Pulse Resp B/P (MAP) Pulse Ox O2 Delivery O2 Flow Rate FiO2 01/05/22 11:49 94 Room Air 01/05/22 10:20 98.6 82 16 124/59 (80) 3.0 98.6 Weight Weight [ ] I.O. Intake and Output Intake and Output 01/05/22 07:00 Intake Total 60 ml Output Total 0 ml Balance 60 ml Intake Oral 60 ml Output Urine Total 0 ml Labs Labs Laboratory Tests Test 01/05/22 04:00 Sodium Level 142 mmol/L (136-145) Potassium Level 3.6 mmol/L (3.5-5.1) Chloride Level 101 mmol/L (98-107) Carbon Dioxide Level 31 mmol/L (21-32) Anion Gap 10 (6-14) Blood Urea Nitrogen 38 mg/dL (7-20) Creatinine 2.5 mg/dL (0.6-1.0) Estimated GFR (Cockcroft-Gault) 18.6 BUN/Creatinine Ratio 15 (6-20) Glucose Level 122 mg/dL (70-99) Calcium Level 8.8 mg/dL (8.5-10.1) Total Bilirubin 0.4 mg/dL (0.2-1.0) Aspartate Amino Transf (AST/SGOT) 22 U/L (15-37) Alanine Aminotransferase (ALT/SGPT) 22 U/L (14-59) Alkaline Phosphatase 102 U/L (46-116) Total Protein 6.3 g/dL (6.4-8.2) Albumin 2.4 g/dL (3.4-5.0) Albumin/Globulin Ratio 0.6 (1.0-1.7) Review of Systems Constitutional: yes: alert, oriented Ears/Nose/Throat: Yes: no symptom reported Eyes: Yes: no symptom reported Pulmonary: Yes no symptom reported Cardiovascular: Yes chest pain Gastrointestional: Yes: no symptom reported Musculoskeletal: Yes: muscle stiffness Skin: Yes no symptom reported Psychiatric/Neurological: Yes: no symptom reported Endocrine: Yes: no symptom reported Physical Exam General Appearance: no apparent distress Skin: warm Respiratory: bilateral CTA Heart: S1S2 Abdomen: soft, bowel sounds present Genitourinary: bladder flat Extremities: pulses present Neurology: alert, oriented, follow commands Musculoskeletal: Osteoarthritis, Other Assessment Assessment IMP CKD STAGE 4-CR STABLE AT BASELINE OF ABOUT 2.5 DYSPNEA CHEST PAIN HTN HX MILD HYPOTENSION-IMPROVED HX OF TOBACCOISM PROB COPD PLAN CARDIOLOGY AND PULM EVALUATION CONT LASIX AND KCL LABS IN AM CARDIOLOGY EVAL WILL FOLLOW ANDRES MCKEE MD Jan 05, 2022 12:28
--- NOTE | 2022-01-05 13:32 | DS ---
DATE OF DISCHARGE: 01/05/2022 ADMISSION DIAGNOSES: Chest pain, shortness of breath, and probable heart failure. DISCHARGE DIAGNOSES: Resolving acute on chronic systolic and diastolic heart failure, chronic kidney disease, malnutrition, chronic obstructive pulmonary disease. History of asthma, constipation, arrhythmias, chronic anticoagulation, hyperlipidemia, depression, anxiety, gastroesophageal reflux disease and neuropathy. CONSULTS: Dr. Banegas, Dr. Thacker and Dr. Gonzales. PROCEDURES: None. HOSPITAL COURSE: The patient is a pleasant, middle-aged female who presented with chest pain, shortness of breath, was noted to have acute on chronic systolic and diastolic heart failure. She was admitted. We diuresed her. The above consults were obtained. Today, I saw and examined her. She wants to go home. She is doing well. We plan to discharge. DISPOSITION: Home. ACTIVITY: As tolerated. DIET: Cardiac. DISCHARGE MEDICATIONS: ProAir p.r.n., allopurinol 100 daily, potassium 10 a day, Ultram 50 q.6, Tylenol 50 q.6 p.r.n., amiodarone 200 a day, Eliquis 5 b.i.d., atorvastatin 80 a day, calcitriol 0.25 a day, citalopram 20 a day, Lasix 40 a day, Pepcid 20 a day, gabapentin 300 b.i.d., Synthroid 137 a day, mirtazapine 15 a day, oxybutynin 5 daily. TOTAL TIME: [address]: Dayo TID: [id number]
[2022-01-05 14:30] VITALS: BP 121/57
== END 2022-01-05 14:50 | disposition home or self-care (01) | DRG 291 ==
LOC: ER 13:53 → 6 SOUTH 16:00
PROVIDERS: ADMIT Internal Medicine; ATTEND Internal Medicine
DX: I13.0 Hypertensive heart and chronic kidney disease with heart failure and stage 1 through stage 4 chronic kidney disease, or unspecified chronic kidney disease (principal); J96.21 Acute and chronic respiratory failure with hypoxia; I50.43 Acute on chronic combined systolic (congestive) and diastolic (congestive) heart failure; E44.0 Moderate protein-calorie malnutrition; N18.4 Chronic kidney disease, stage 4 (severe); D63.1 Anemia in chronic kidney disease; E03.9 Hypothyroidism, unspecified; Z68.38 Body mass index [BMI] 38.0-38.9, adult; E66.9 Obesity, unspecified; E78.00 Pure hypercholesterolemia, unspecified; E78.5 Hyperlipidemia, unspecified; G25.0 Essential tremor; G25.81 Restless legs syndrome; G47.00 Insomnia, unspecified; I48.0 Paroxysmal atrial fibrillation; K31.84 Gastroparesis; F32.A Depression, unspecified; F41.9 Anxiety disorder, unspecified; G62.9 Polyneuropathy, unspecified; K21.9 Gastro-esophageal reflux disease without esophagitis; M10.9 Gout, unspecified; I95.9 Hypotension, unspecified; M19.90 Unspecified osteoarthritis, unspecified site; J44.9 Chronic obstructive pulmonary disease, unspecified; Z88.6 Allergy status to analgesic agent; Z79.01 Long term (current) use of anticoagulants; Z79.899 Other long term (current) drug therapy; Z82.3 Family history of stroke; Z82.49 Family history of ischemic heart disease and other diseases of the circulatory system; Z87.891 Personal history of nicotine dependence; Z90.710 Acquired absence of both cervix and uterus; Z20.822 Contact with and (suspected) exposure to COVID-19
CPT/HCPCS: 36415; 71045; 71250; 78452; 80048; 80053; 83735; 83880; 84443; 84484; 85025; 85651; 87426; 93005; 93017; 93306; 94618; 94640; 94642; 94760; 96374; A9500; J0696; J1940; J2270; J2785; U0003; 99285-25; C8929; G0378; J7626